=== PATIENT | female | born 1980 | race Caucasian/White ===

== ENCOUNTER 2020-07-25 12:36 | Emergency (ER) | payer OTHER, SELFPAY ==
[2020-07-25 12:44] VITALS: BP 141/101; PULSE 102; RESP 16; TEMP 37; O2SAT 98
--- NOTE | 2020-07-25 12:53 | ED.GENADULT ---
HPI - General Adult General Chief complaint: Eye Problems Stated complaint: rt eye swollen Time Seen by Provider: 07/25/20 12:54 Source: patient, RN notes reviewed and old records reviewed Mode of arrival: ambulatory Limitations: no limitations History of Present Illness HPI narrative: 39 year old female presents to [facility] care with complaints of awakening this morning with right eye swollen. Patient denies any injury to her eye, denies any feeling of foreign body, no itching is not painful and has no photophobia. Patient states no drainage noted from her right eye, swelling noted along right upper eyelid with some redness along upper lid lash line. Patient denies any sinus drainage, sinus congestion or pressure, no fevers,chills or sweats. Patient does wear glasses and sometimes contacts but has not worn them for 3 days. MD complaint: right eye swollen Onset (ago): day(s) (1) Location: eyes (right) Radiation: non-radiation Severity: mild Quality: other ( mild irritating) Relieving factors: none Associated symptoms: denies other symptoms Treatments prior to arrival: other (cold compress) Related Data Home Medications Medication Instructions Recorded Confirmed aripiprazole 15 mg PO DAILY 07/25/20 07/25/20 sertraline 100 mg PO DAILY 07/25/20 07/25/20 Allergies Allergy/AdvReac Type Severity Reaction Status Date / Time No Known Allergies Allergy Verified 07/25/20 12:50 Review of Systems Review of Systems: Narrative: CONSTITUTIONAL: Denies fever, chills, or sweats. EYES: Denies visual changes, redness, or discharge.swelling to right upper eyelid with redness along upper lash line denies any acute pain or itching ENT: Denies rhinorrhea, congestion, sore throat, or otalgia. CARDIOVASCULAR: Denies chest pain, palpitations, or edema. RESPIRATORY: Denies cough or dyspnea. GASTROINTESTINAL: Denies abdominal pain, nausea, vomiting, or diarrhea. GENITOURINARY: Denies dysuria or hematuria. SKIN: Denies rash or itching. MUSCULOSKELETAL: Denies back pain, joint pain, or myalgia. NEUROLOGIC: Denies headache, numbness, or weakness. PSYCHIATRIC: Denies anxiety or depression. All systems reviewed & are unremarkable except as noted in HPI and below PMFSH Past Medical History Medical History (Updated 07/25/20 @ 13:49 by Evon Matias NP) Anxiety and depression Surgical History Surgical History (Updated 07/25/20 @ 13:31 by Evon Matias NP) Previous section Tubal ligation status Family History Family History (Updated 07/25/20 @ 13:29 by Evon Matias NP) Grandparent Heart disease Mother Hypertension Father Cancer of lung Social History Social History (Updated 07/25/20 @ 13:48 by Evon Matias NP) Tobacco type: e-cigarettes/vaping Alcohol intake: former Alcohol use details: social only Substance use: never Living arrangements: with family Gender identity (if verbalized by the patient): Female Comments At time of signature, agree with nursing past medical, surgical, social and family history. There is no relevant family history pertinent to the presenting complaint Exam Narrative: Exam Narrative: GENERAL: Well-appearing, well-nourished, and in no acute distress. HEAD: Normocephalic, atraumatic. EYES: PERRLA and EOMI.sclera clear, conjunctiva pink, no drainage noted from eye. swelling present to right upper eyelid with some redness along upper eye lid lash line, no drainage from eye or any photophobia or changes in vision ENT: Nares clear, no rhinorrhea or epistaxis. Mucous membranes moist. NECK: Supple.no lymphadenopathy CHEST: Clear to auscultation. No respiratory distress.SAO2 98% on room air HEART: Regular rate and rhythm. No murmur heard. Normal peripheral pulses. ABDOMEN: Soft, nontender, nondistended, normal active bowel sounds. EXTREMITIES: Normal range of motion. No edema. SKIN: Warm, dry, no rash. NEURO: No focal deficits. Alert and oriented x3. Course Sia
== END 2020-07-25 13:20 | disposition home or self-care (01) ==
PROVIDERS: Emergency Provider Registered Nurse
DX: H02.841 Edema of right upper eyelid (principal); F17.200 Nicotine dependence, unspecified, uncomplicated; F41.9 Anxiety disorder, unspecified; F32.9 Major depressive disorder, single episode, unspecified
CPT/HCPCS: 99213; G0463

== ENCOUNTER 2024-06-16 00:29 | Emergency (ER) | payer OTHER, SELFPAY ==
[2024-06-16] VITALS (8 sets, daily range): BP systolic 121–140; BP diastolic 79–94; PULSE 72–109; RESP 15–21; TEMP 36.2; O2SAT 96–100
--- NOTE | ~2024-06-16 | XR_ITS ---
XR chest 2V Ordering provider: Brennan Castle MD History: 43 years Female with . chest pain . Comparison: None. FINDINGS: MEDIASTINUM: The cardiac silhouette is not enlarged. LUNGS: No infiltrates, effusions or pneumothorax. OTHER: No free air under the diaphragm. IMPRESSION: No acute cardiopulmonary pathology. Reviewed, dictated and finalized at location A.
--- NOTE | 2024-06-16 00:31 | ECG_ITS ---
Test Date: 2024-06-16 00:53:39 Measurements Intervals [place] Rate: 92 P: 53 MO: 141 QRS: 23 QRSD: 98 T: 54 QT: 367 QTc: 456 Interpretive Statements SINUS RHYTHM NONSPECIFIC T-WAVE ABNORMALITY No previous ECG available for comparison Electronically Signed On 06-16-2024 16:04:32 CDT by Mariana Tyler
--- OUTSIDE RECORDS SUMMARY | 2024-06-16 00:32 | XMS_ITS | Referral Summary ---
Author Organization [facility] Address [address] [place] [address] Care Team Providers Care Slot Operations Director Name Role Phone Kamron Jones MD Primary Care Provider [phone] Kamron Jones MD Unavailable [phone] Encounters Date Type Department Care Team Description 06/05/2024 Telephone [facility] Orthopedics and Sports Medicine [address] [facility] [address] [place] [address] Esa Metzger PA 05/08/2024 Results Follow-Up [facility] [address] [address] Kamron Jones MD 05/07/2024 9:30 AM CDT Lab [facility] [address] [place] [address] Morbid obesity with BMI of 45.0-49.9, adult (HCC); History of sleeve gastrectomy 05/07/2024 9:00 AM CDT Office Visit [facility] [address] [address] Kamron Jones MD History of sleeve gastrectomy (Primary Dx); Need for hepatitis B screening test; Encounter for hepatitis C screening test for low risk patient; Lipid screening; Morbid obesity with BMI of 45.0-49.9, adult (HCC); Class 3 severe obesity due to excess calories without serious comorbidity with body mass index (BMI) of 50.0 to 59.9 in adult (HCC); ANGEL (obstructive sleep apnea) 05/01/2024 8:40 AM CDT Lab [facility] [address] [place] [address] Lipid screening; Encounter for hepatitis C screening test for low risk patient; Need for hepatitis B screening test 04/30/2024 Telephone [facility] [address] [place] [address] Kamron Jones MD Labs Only 03/25/2024 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 Office Visit [facility] Orthopedics and Sports Medicine [address] [facility] [address] [place] [address] Esa Metzger PA Primary osteoarthritis of right knee (Primary Dx); Morbid obesity with BMI of 45.0-49.9, adult (HCC) from Last 3 Months Allergies No known active allergies Medications ARIPiprazole (ABILIFY) 20 mg tabletIndicatio ns:Depression Treatment Adjunct Take 1 tablet (20 mg total) by mouth nightly 90 tablet 1 08/11/2023 5 Active sertraline (ZOLOFT) 100 mg tabletIndicatio ns:Generalized Anxiety Disorder Take 2 tablets (200 mg total) by mouth nightly 180 tablet 1 08/11/2023 5 Active busPIRone (BUSPAR) 15 mg tabletIndicatio ns:Generalized anxiety disorder Take 1 tablet (15 mg total) by mouth 3 (three) times a day 09/20/2023 Active Active Problems Problem Noted Date Diagnosed Date Urinary incontinence 03/10/2023 Assessment & Plan (03/10/2023 9:43 AM DIE MAINTENANCE TECHNICIAN): S/p hysterectomy; occurences of incontinence Referral to PT for pelvic floor therapy Chronic pain of right knee 03/10/2023 Assessment & Plan (03/10/2023 9:45 AM DIE MAINTENANCE TECHNICIAN): Update xray ordered Discussed ortho referral pending results Gastroesophageal reflux disease without esophagi tis 03/10/2023 Assessment & Plan (11/17/2023 9:42 AM CDT): Continue Nexium 20 mg daily History of sleeve gastrectomy 02/01/2022 Assessment & Plan (05/07/2024 3:30 PM CDT): Not well controlled, patient continues to have weight gain; patient on appropriate diet; regular physical activity Patient reports recent imaging demonstrated stomach appeared more rounded in nature then please Will check for possible other causes weight gain, as well as check for availability for patient to start tirzepatide;; if limited options, will refer to [facility] weight loss clinic Assessment & Plan (05/10/2022 8:34 AM CDT): Continue small frequent meals. We will encourage her to continue to attend the monthly support group meetings. Activity unrestricted. Continue calcium, multivitamin and vitamin-D see the patient back in 6 months. If the discomfort with sleeping on her sides persist she will let us know and we will evaluate this further. She will call sooner if anything changes. Assessment & Plan (02/01/2022 1:50 PM DIE MAINTENANCE TECHNICIAN): Stable, improving, pain is down to 3/10 -doing well with diet; on pureed diet at this time -continues to have weight loss Tobacco use disorder, moderate, in sustained rem ission 06/03/2021 Overview (01/14/2022): Quit date 04/2021 Assessment & Plan (02/01/2022 1:52 PM DIE MAINTENANCE TECHNICIAN): Quit smoking, doing well Assessment & Plan (06/03/2021 10:50 AM CDT): Stable, not well controlled; patient reports smoking 10-20 cigarettes daily Patient is unsure about smoking cessation due to stress related to weight loss Discussed with patient importance of smoking cessation in order to improve healing from surgery Most right Nicoderm 14 mg daily for 4 weeks, then taper to 7 mg daily to be followed with neck current gum Will follow-up in 2-3 months response to therapy Generalized anxiety disorder 10/27/2020 Assessment & Plan (11/17/2023 9:45 AM CDT): Chronic, stable Follows with psychiatry Continue Sertraline 200 mg nightly, BuSpar 15 mg TID and Aripiprazole 20 mg nightly Assessment & Plan (08/11/2023 9:37 AM CDT): Chronic, stable Follows with psychiatry Continue Sertraline 200 mg daily, BuSpar 10 mg TID, Aripiprazole 20 mg daily Assessment & Plan (03/10/2023 9:42 AM DIE MAINTENANCE TECHNICIAN): Stable, follows with psychiatry Continue Sertraline 200 mg daily, BuSpar 10 mg TID; Aripiprazole 20 mg daily Assessment & Plan (07/15/2022 12:38 PM CDT): Recently increased due to multiple stressors; follows with Psychiatry, has regular talk therapy Continue Abilify 20 mg daily, BuSpar 5 mg b.i.d., sertraline 200 mg daily Assessment & Plan (02/01/2022 1:52 PM DIE MAINTENANCE TECHNICIAN): Had initially stopped medication due to concerns of constipation; now taking medications to management worsening anxiety -continue abilify 20 mg daily, sertraline 200 mg daily Assessment & Plan (06/03/2021 10:49 AM CDT): Stable, well controlled; patient continues to follow psychiatry for management Continue Abilify 50 mg daily, sertraline 125 mg daily Assessment & Plan (03/31/2021 9:01 AM DIE MAINTENANCE TECHNICIAN): Stable, falls psychiatry; has good relief symptoms Currently on Abilify 50 mg daily, sertraline 100 mg daily Assessment & Plan (10/27/2020 3:46 PM CDT): Follows with psychiatry for management; on Abilify 15 mg and has sertraline 100 mg daily ANGEL (obstructive sleep apnea) 10/27/2020 Assessment & Plan (05/07/2024 3:30 PM CDT): Not well controlled, take CPAP nightly; may benefit from zepbound for treatment Assessment & Plan (07/15/2022 12:38 PM CDT): Stable, generally well controlled with limited daytime sleepiness; has insulin more upright due to postsurgical pain Continue to monitor Assessment & Plan (03/31/2021 9:01 AM DIE MAINTENANCE TECHNICIAN): Stable, well controlled; patient reports significant improvement in symptoms with uses CPAP machine Patient to continue CPAP machine nightly Assessment & Plan (11/17/2020 8:12 AM CDT): Continue current breathing treatments. Class 3 severe obesity due t o excess calories without serious comorbidity with body mass index (BMI) of 50.0 to 59.9 in adult 09/22/2020 Assessment & Plan (05/07/2024 3:29 PM CDT): Not well controlled; patient has history of sleeve gastrectomy; had initial weight loss, which reversed and now weighs heavier than she did prior to surgery Unclear etiology; will check insulin like growth factor, will check C-peptide for possible excess insulin Given ANGEL, patient may benefit from Zepbound Assessment & Plan (11/17/2023 9:48 AM CDT): Weight is steady Unable to lose weight-eating lean healthy protein, whole grains; has cut out pasta Exercising daily-walking on treadmill Needs her BMI to be under 40 for her knee replacement surgery Mounjaro to [facility] She has tried Wellbutrin, Phentermine and Diethylpropion Had weight loss surgery Trial Vyvanse 40 mg daily Follow up 2 months Assessment & Plan (08/11/2023 9:48 AM CDT): Weight is steady Unable to lose weight-eating lean healthy protein, whole grains; has cut out pasta Exercising daily-walking on treadmill Needs her BMI to be under 40 for her knee replacement surgery Mounjaro sent to pharmacy She has tried Wellbutrin and Phentermine Had weight loss surgery Assessment & Plan (03/10/2023 9:44 AM DIE MAINTENANCE TECHNICIAN): 10 pound weight gain since November Discussed importance of healthy diet S/p sleeve gastrectomy Assessment & Plan (07/15/2022 12:39 PM CDT): Stable, improving; weight is stable since last visit Status post sleeve gastrectomy; doing well and tolerating small portions or solid diet No major skin folds or history of skin rashes Continue to monitor Right upper quadrant pain; may be postsurgical pain verses other pain; continue to monitor, if no improvement, would consider abdominal imaging Assessment & Plan (02/08/2022 10:35 AM DIE MAINTENANCE TECHNICIAN): The patient is okay for activities unrestricted. We will encourage her to continue to work with the dietitian as well as a 10 the monthly support group meetings. Small frequent meals and exercise as tolerates. We will encourage protein supplementation. We will see her back at 3 months. Patient will call sooner with any questions or concerns. Assessment & Plan (11/30/2021 8:17 AM CDT): The patient has done quite well having shown consistent weight loss throughout her time. We will encourage her to continue to work with the dietitian and attend the monthly support group sessions. Continue exercise regimen as tolerates. The preoperative liquid handout has been given and instructed on when to start. All questions answered. Assessment & Plan (11/02/2021 8:38 AM CDT): Patient is set to have an EGD today to evaluate for H pylori and hiatal hernia. We will see her back next month to reassess. Continue working on exercise regimen and small frequent meals. Assessment & Plan (10/05/2021 8:21 AM CDT): Continue small frequent meals with goal calorie intake of 1600. Exercise regimen as tolerates. Continue to attend the monthly support groups. We will see her back in 1 month to reassess. Assessment & Plan (09/02/2021 8:38 AM CDT): The patient will continue with her low-carbohydrate diet and watching her sugar intake. Exercise as a to work with the dietitian. We will see her back next month Assessment & Plan (08/05/2021 5:56 PM CDT): Patient is aware of the work that she needs to do to progress. She will continue to work with small frequent meals and exercise regimen as tolerates. Continue follow-up with the dietitian. We will see her back next month to reassess. Assessment & Plan (07/13/2021 8:40 AM CDT): The patient had been seen in the past previously and was being set up for surgery. She However got little bit nervous about this and wanted to wait on the procedure. Her recently went through the program and now she feels significantly more comfortable with things going forward. Referrals will be sent back into the dietitian, psych and physical therapy. She is in understanding of the plan. Assessment & Plan (06/03/2021 10:49 AM CDT): Stable, not well controlled; weight is stable since last visit 2 months ago Patient is interested in referral to bariatric surgery Referral placed today Assessment & Plan (03/31/2021 9:00 AM DIE MAINTENANCE TECHNICIAN): Not well controlled, patient has been working with on weight loss, but has limited success -no interestedin weight loss surgery due to concerns of complications -Will prescribe Liraglutide for weight loss; patient referred in office to manage [facility] chips counseling for weight loss Assessment & Plan (11/17/2020 8:13 AM CDT): Given their past success the patient would be a good candidate for weight loss surgery. We have gone over options such as the bypass and sleeve gastrectomy. We have also discussed risks and benefits such as blood clots, staple line leak as well as new or worsening reflux symptoms. They are in understanding. During this time will have them seen by the dietitian, physical therapy and psych. As we get closer to the time of surgery we will set him up for an EGD to look for hiatal hernia, H pylori or other gastric pathology. We will see them back in 4 weeks. They are in understanding of the plan. We have gone over small frequent meals shooting for a goal calorie intake of around 1600 spread throughout 4-5 meals. We have discussed not eating late at night. We have discussed cardiovascular exercise. Greater than 15 minutes was spent in counseling the patient on diet and exercise with regards to her morbid obesity. Assessment & Plan (10/27/2020 3:46 PM CDT): Not well controlled, patient has tried multiple treatments, patient is also on antipsychotic medication which makes it difficult to lose weight Patient would like referral for bariatric surgery evaluation; referral has been placed Resolved Problems Problem Noted Date Diagnosed Date Resolved Date Abnormal uterine bleeding (AUB) 07/26/2022 11/17/2023 Fibroids 07/26/2022 11/17/2023 Other hemorrhoids 02/01/2022 11/17/2023 Assessment & Plan (02/01/2022 1:51 PM DIE MAINTENANCE TECHNICIAN): Has been having pain, few episodes of constiaption -continue OTC management; treat constipation with milk of magnesia Heartburn 10/29/2021 11/17/2023 Overview (10/29/2021): Added automatically from request for surgery [id number] Immunizations Immunization Administration Dates Next Due Influenza, Quadrivalent, Radha l Culture-based MDCK, Preservative Free, Antibiotic Free, Intramuscular 11/22/2021 Influenza, Unspecified 11/14/2023,2022(Deferred: Patient Refused),11/13/2022(Deferred: Patient Refused),03/30/2021(Deferred: Patient Refused),10/14/2020(Deferred: Patient Refused),09/22/2020(Deferred: Patient Refused),09/14/2019(Deferred: Patient Refused) Tdap 03/10/2023 Social History Tobacco Use Types Packs/Day Years Used Date Smoking Tobacco: Former Cigarettes 1 31.2 1 991 - 04/28/2021 Vaping Smokeless Tobacco: Never Tobacco Cessation:Counseling Given: Not Answered Alcohol Use Standard Drinks/Week Comments Defer 0 (1 standard drink = 0.6 oz pur e alcohol) AUDIT-C Answer Date Recorded Q1: How often do you have a drink containing alc ohol? Monthly or less 10/14/2022 Q2: How many drinks containi ng alcohol do you have on a typical day when you are drinking? 1 or 2 10/14/2022 Q3: How often do you have si x or more drinks on one occasion? Never 10/14/2022 PHQ-2 Answer Date Recorded PHQ-2 Total Score (If total score is 3 or more points, staff should administer the PHQ-9) 0 11/17/2023 Personal Safety Answer Date Recorded Have you ever been in or are you currently in a harmful physical or emotional relationship or is someone making you feel afraid or unsafe? 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[employer] [employer] Not on file Not on file Not on file Last Filed Vital Signs Vital Sign Reading Time Taken Comments Blood Pressure 124/80 05/07/2024 8:56 AM CDT Pulse 80 05/07/2024 8:56 AM CDT Temperature 36.5 C (97.7 F) 05/07/2024 8:56 AM CDT Respiratory Rate 18 05/07/2024 8:56 AM CDT Oxygen Saturation 98% 05/07/2024 8:56 AM CDT Inhaled Oxygen Concentration - - Weight 146.1 kg (322 lb) 05/07/2024 8:56 AM CDT Height 162.6 cm (5' 4 ) 05/07/2024 8:56 AM CDT Body Mass Index 55.27 05/07/2024 8:56 AM CDT Plan of Treatment Not on file Medical Devices Implanted Type Area Switch Tender Device Identifier Shelf Expiration Date Model / Serial / Lot Signal360 (formerly Sonic Notify) Mammostar Tissue Barbell Marker Breast Biopsy Beta Glucan Ceramic [id number] - [id number] Implanted:Qty: 1 on 07/27/2022 at [facility] [employer] [id number] 01/10/2027 [id number] / / [id number] Procedures Procedure Name Priority Date/Time Associated Diagnosis Comments INSULIN-LIKE GROWTH FACTOR Routine 05/07/2024 9:36 AM CDT Morbid obesity with BMI of 45.0-49.9, adult (HCC) History of sleeve gastrectomy C-PEPTIDE Routine 05/07/2024 9:36 AM CDT Morbid obesity with BMI of 45.0-49.9, adult (HCC) History of sleeve gastrectomy EGFR Routine 05/01/2024 8:51 AM CDT Lipid screening DIFFERENTIAL AUTO Routine 05/01/2024 8:5 1 AM CDT Lipid screening LIPID PANEL Routine 05/01/2024 8:51 AM CDT Lipid screening CBC WITH AUTO DIFFERENTIAL Routine 05/01/2024 8:51 AM CDT Lipid screening COMPREHENSIVE METABOLIC PANEL Routine 05/01/2024 8:51 AM CDT Lipid screening HEPATITIS B SURFACE ANTIGEN Routine 05/01/2024 8:51 AM CDT Need for hepatitis B screening test HEPATITIS B CORE ANTIBODY, TOTAL Routine 05/01/2024 8:51 AM CDT Need for hepatitis B screening test HEPATITIS B SURFACE ANTIBODY (IMMUNE STATUS) Routine 05/01/2024 8:51 AM CDT Need for hepatitis B screening test HEPATITIS C ANTIBODY Routine 05/01/2024 8:51 AM CDT Encounter for hepatitis C screening test for low risk patient [place] ARTHROCENTESIS ASPIR&/INJ MAJOR JT/BURSA W/O US Routine 03/25/2024 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 Primary osteoarthritis of right knee SCREENING MAMMOGRAM BILATERAL W JASSON Schedule Routine, Read Routine (OP Routine) 07/31/2023 9:06 AM CDT Screening mammogram, encounter for from Last 3 Months or Most Recently Relevant to Health Maintenance Results * Insulin-like growth factor (IGF-1) (05/07/2024 9:36 AM CDT) Insulin-like growth factor 1 (IGF-1) 127 50 - 250 ng/mL Comment: Interpretive Data Alvaro Stage Male Female I 80-250 80-320 II 100-450 120-450 III 250-500 250-550 IV 225-600 225-600 V 225-500 180-500 Assay calibrated to WHO and instituted at [facility] 06/2017. References: 1. [employer] IGF-1 Package Insert 2016-11, V 1.0. 2. [facility] IGFMS entry ([email or web address].[email or web address]-[email or web address]/43781) accessed 06-21-2017. 3. Kendal M, Osman N, Nick RT et al. J Clin Endocrinol Metab 2014;99:4633-2218. Current interpretive data was last revised on 2017. Testing performed by: [facility], [place]., [address] Blood 05/07/2024 9:36 AM CDT 05/07/2024 2:05 PM CDT Kamron Jones MD LAB BLOOD ORDERABLES Anahi l Result [facility] ([place]) 1 [facility] Department of Laboratories [place] [id number] * C-peptide (05/07/2024 9:36 AM CDT) C-peptide 4.06 1.10 - 4.40 ng/mL Comment:Testing performed by : [facility], [address] [place] [address]., [id number] Blood 05/07/2024 9:36 AM CDT 05/07/2024 1:57 PM CDT Kamron Jones MD LAB BLOOD ORDERABLES Anahi l Result [facility] ([place]) 1 [facility] [place] [address] * eGFR (05/01/2024 8:51 AM CDT) eGFR >90 >=60 mL/min/1. 73 m2 Comment: Interpretive Data Reference Interval Normal >/= 90 mL/min/1.73m2 Mildly decreased* 60 - 89 mL/min/1.73m2 Mildly to moderately decreased 45 - 59 mL/min/1.73m2 Moderately to severely decreased 30 - 44 mL/min/1.73m2 Severely decreased 15 - 29 mL/min/1.73m2 Kidney Failure < 15 mL/min/1.73m2 *Relative to young adult level Estimated glomerular filtration rate is determined by the 2020 CKD-EPI equation recommended by the National Kidney Foundation (A Unifying Approach to GFR Estimation: Recommendations of the NKF-ASK Task Force on Reassessing the Inclusion of Race in Diagnosing Kidney Disease, JASN 2020). The CKD-EPI equation should not be used for patients with unstable renal function and has not been validated in children and those over 70. Current interpretive data was last reviewed 2020. Testing performed by: [address] [address] Blood 05/01/2024 8:51 AM CDT 05/01/2024 12:43 PM CDT us Kamron Jones MD LAB BLOOD ORDERABLES Anahi campa Result [facility] ([place]) [address] [facility] [place] [address] * Differential, auto (05/01/2024 8:51 AM CDT) Pathologist [facility] Neutrophil abs 5.6 1.5 - 6.5 K/cumm Comment:Testing performed by : [address] [address] Imm gran abs 0.0 0.0 - 0.1 K/cumm [facility] ([place]) Comment:Testing performed by : [address] [address] Lymphocyte abs 2.9 0.8 - 3.3 K/cumm [facility] ([place]) Comment:Testing performed by : [facility], [address] [place] [address]., [address] Monocyte abs 0.5 0.2 - 0.8 K/cumm [facility] ([place]) Comment:Testing performed by : [facility], [address] [place] [address]., [address] Eosinophil abs 0.3 0.0 - 0.5 K/cumm [facility] ([place]) Comment:Testing performed by : [facility], [address] [place] [address]., [address] Basophil abs 0.1 0.0 - 0.1 K/cumm [facility] ([place]) Comment:Testing performed by : [address] [address] Neutrophil pct 59.6 % [facility] ([place]) Comment: Interpretive Data Percent cell count reference ranges are not reported, since discordance with absolute values may lead to misinterpretation of CBC data. Current Interpretive Data was last revised on 2017. Testing performed by: [facility], [address] [place] [address]., [address] Imm gran pct 0.3 % [facility] ([place]) Comment: Interpretive Data Percent cell count reference ranges are not reported, since discordance with absolute values may lead to misinterpretation of CBC data. Current Interpretive Data was last revised on 2017. Testing performed by: [address] [address] Lymphocyte pct 30.8 % [facility] ([place]) Comment: Interpretive Data Percent cell count reference ranges are not reported, since discordance with absolute values may lead to misinterpretation of CBC data. Current Interpretive Data was last revised on 2017. Testing performed by: [address] [address] Monocyte pct 5.6 % [facility] ([place]) Comment: Interpretive Data Percent cell count reference ranges are not reported, since discordance with absolute values may lead to misinterpretation of CBC data. Current Interpretive Data was last revised on 2017. Testing performed by: [address] [place]., [address] Eosinophil pct 3.1 % [facility] ([place]) Comment: Interpretive Data Percent cell count reference ranges are not reported, since discordance with absolute values may lead to misinterpretation of CBC data. Current Interpretive Data was last revised on 2017. Testing performed by: [facility], [address] [place] [address]., [address] Basophil pct 0.6 % [facility] ([place]) Comment: Interpretive Data Percent cell count reference ranges are not reported, since discordance with absolute values may lead to misinterpretation of CBC data. Current Interpretive Data was last revised on 2017. Testing performed by: [facility], [address] [place] [address]., [address] Blood 05/01/2024 8:51 AM CDT 05/01/2024 12:27 PM CDT us Kamron Jones MD LAB BLOOD ORDERABLES Anahi capma Result [facility] ([place]) 1 [facility] [place] [address] * CBC with auto differential (05/01/2024 8:51 AM CDT) WBC 9.3 3.8 - 9.9 K/cumm Comment:Testing performed by : [facility], [address] [place] [address], [id number] Hgb 13.5 11.9 - 15.5 g/dL [facility] ([place]) Comment:Testing performed by : [facility], [address] [place] [address], [id number] Hct 40.0 35.6 - 45.5 % [facility] ([place]) Comment:Testing performed by : [facility], [address] [place] [address], [id number] Plt 348 150 - 400 K/cumm [facility] ([place]) Comment:Testing performed by : [address], [address] MPV 9.8 9.1 - 12.3 fL [facility] ([place]) Comment:Testing performed by : [address] [place]., [address] RBC 4.46 3.90 - 5.20 M/cumm [facility] ([place]) Comment:Testing performed by : [facility], [address] [place] [address], [address] MCV 89.7 81.3 - 96.4 fL [facility] ([place]) Comment:Testing performed by : [facility], [address] [place] [address], [address] MCH 30.3 27.1 - 33.3 pg [facility] ([place]) Comment:Testing performed by : [address], [address] MCHC 33.8 32.3 - 35.7 g/dL [facility] ([place]) Comment:Testing performed by : [address], [address] RDW CV 13.0 11.1 - 14.9 % [facility] ([place]) Comment:Testing performed by : [address], [address] RDW SD 43.0 35.7 - 48.1 fL [facility] ([place]) Comment:Testing performed by : [address], [address] NRBC abs 0.00 0.00 - 0.01 K/cumm [facility] ([place]) Comment:Testing performed by : [address], [address] Blood 05/01/2024 8:51 AM CDT 05/01/2024 12:27 PM CDT us Kamron Jones MD LAB BLOOD ORDERABLES Anahi campa Result [facility] ([place]) 1 [facility] Department of Laboratories [place], [place] [id number] * Hepatitis C antibody Blood (05/01/2024 8:51 AM CDT) Hep C Ab Nonreactive Nonreactive Comment: Interpretive Data Nonreactive: Antibodies to HCV not detected. Does NOT exclude the possibility of recent exposure to HCV. Equivocal: Equivocal for HCV antibodies. Supplemental molecular testing will be automatically performed to determine infection status in accordance with current CDC screening recommendations. Reactive: Positive for HCV antibodies. This may represent current or past HCV infection. Supplemental molecular testing will be automatically performed to determine current infection status in accordance with current CDC screening recommendations. Interpretive data was last revised on 2019. Testing performed by: [facility], [address] [place] [address]., [address] Blood 05/01/2024 8:51 AM CDT 05/01/2024 12:27 PM CDT Kamron Jones MD LAB MICROBIOLOGY - GENERA L ORDERABLES Final Result [facility] ([place]) 1 [facility] [place] [place] [address] * Hepatitis B core antibody, total Blood (05/01/2024 8:51 AM CDT) Hep B core IgG/IgM Nonreactive Nonreactive Comment:Testing performed by : [facility], [address] [place] [address]., [id number] Blood 05/01/2024 8:51 AM CDT 05/01/2024 1:58 PM CDT Kamron Jones MD LAB MICROBIOLOGY - GENERA L ORDERABLES Final Result [facility] ([place]) [address] [place] [address] [place] [address] * Hepatitis B surface antibody (immune status) Blood (05/01/2024 8:51 AM CDT) HBsAb (immune status) Reactive Comment: Interpretive Data Nonreactive: This result is consistent with a lack of immunity to Hepatitis B Virus when used in the setting of routine screening. Equivocal: The immune status of the individual should be further assessed, if appropriate, after consideration of clinical status, risk factors, and additional diagnostic information. Reactive: This result is consistent with immunity to Hepatitis B Virus when used in the setting of routine screening. Current interpretive data was last revised on 19. Testing performed by: [facility], [address] [place] [address]., [id number] HBsAb (immune status) index 109.0 mIUnits/m L [facility] ([place]) Comment:Testing performed by : [facility], [address] [place] [address]., [id number] Blood 05/01/2024 8:51 AM CDT 05/01/2024 12:27 PM CDT Kamron Jones MD LAB MICROBIOLOGY - GENERA L ORDERABLES Final Result Performing Organization Address City/[facility]/ZIP Co de Phone Number [facility] ([place]) 1 [facility] [place] [place] [address] * Hepatitis B Surface Antigen Blood (05/01/2024 8:51 AM CDT) HepBsAg Nonreactive Nonreactive Comment:Testing performed by : [facility], [address] [place] [address]., [id number] Blood 05/01/2024 8:51 AM CDT 05/01/2024 12:27 PM CDT Kamron Jones MD LAB MICROBIOLOGY - GENERA L ORDERABLES Final Result Performing Organization Address City/[facility]/ZIP Co de Phone Number [facility] ([place]) 1 [facility] [place] [place] [address] * Lipid panel (05/01/2024 8:51 AM CDT) Cholesterol 180 30 - 199 mg/dL Comment: Interpretive Data Ages < or = 19 years Acceptable: <170 mg/dL Borderline high: 170-199 mg/dL High: >or= 200 mg/dL Ages > or = 20 years Desirable: <200 mg/dL Borderline high: 200-239 mg/dL High: >or= 240 mg/dL Literature References: 1. Expert Panel on Integrated Guidelines for Cardiovascular Health and Risk Reduction in Children and Adolescents. Pediatrics 2011;128:S213 2. NCEP Expert Panel. Circulation 2004;110:227 Current Interpretive Data was last revised on 2017. Testing performed by: [facility], [address] [place] [address]., [id number] Triglycerides 77 <=149 mg/dL [facility] ([place]) Comment: Interpretive Data Ages < or = 9 years Acceptable: <75 mg/dL Borderline high: 75-99 mg/dL High: >or= 100 mg/dL Ages 10 to 20 years Acceptable: <90 mg/dL Borderline high: 90-129 mg/dL High: >or= 130 mg/dL Ages > or = 20 years Desirable: <150 mg/dL Borderline high: 150-199 mg/dL High: 200-499 mg/dL Very high: >or= 499 mg/dL Literature References: 1. Expert Panel on Integrated Guidelines for Cardiovascular Health and Risk Reduction in Children and Adolescents. Pediatrics 2011;128:S213 2. NCEP Expert Panel. Circulation 2004;110:227 Current Interpretive Data was last revised on 2017. Testing performed by: [facility], [address] [place] [address]., [address] HDL 53 >=40 mg/dL [facility] ([place]) Comment: Interpretive Data Ages < or = 19 years Acceptable: >45 mg/dL Borderline low: 40-45 mg/dL Low: <40 mg/dL Ages > or = 20 years Desirable: >or= 60 mg/dL Low: <40 mg/dL Literature References: 1. Expert Panel on Integrated Guidelines for Cardiovascular Health and Risk Reduction in Children and Adolescents. Pediatrics 2011;128:S213 2. NCEP Expert Panel. Circulation 2003;110:227 Current Interpretive Data was last revised on 2017. Testing performed by: [facility], [address] [place] [address]., [id number] LDL, calculated 113 <=129 mg/dL [facility] ([place]) Comment: Interpretive Data Ages < or = 19 years Acceptable: <110 mg/dL Borderline high: 110-129 mg/dL High: >or= 130 mg/dL Ages > or = 20 years Optimal: <100 mg/dL Near optimal: 100-129 mg/dL Borderline high: 130-159 mg/dL High: >160 mg/dL Calculated using the Quintanilla LDL-C estimating equation. This equation was implemented on 2023. Prior to this date LDL-C was estimated using the Friedewald equation. Literature References: 1. Expert Panel on Integrated Guidelines for Cardiovascular Health and Risk Reduction in Children and Adolescents. Pediatrics 2011;128:S213 2. NCEP Expert Panel. Circulation 2004;110:227 3. Dwight Rodney et al. ESTHER Cardiol. 2020 June 13;5(5):540-548. doi: [email or web address] Current Interpretive Data was last revised on 2023. Testing performed by: [address] [address] Non-HDL Cholesterol 127 mg/dL [facility] ([place]) Comment: Interpretive Data Ages < or = 19 years Acceptable: <120 mg/dL Borderline high: 120-144 mg/dL High: >145 mg/dL Ages > or = 20 years When triglycerides are >200 mg/dL, Non-HDL cholesterol is a secondary target of therapy with treatment goals that are 30 mg/dL greater than the LDL cholesterol target. Literature References: 1. Expert Panel on Integrated Guidelines for Cardiovascular Health and Risk Reduction in Children and Adolescents. Pediatrics 2011;128:S213 2. NCEP Expert Panel. Circulation 2004;110:227 Current Interpretive Data was last revised on 2017. Testing performed by: [address] [address] Chol/HDL ratio 3 GERRYNE Sherrill [facility] ([place]) Comment:Testing performed by : [address] [address] Blood 05/01/2024 8:51 AM CDT 05/01/2024 12:27 PM CDT us Kamron Jones MD LAB BLOOD ORDERABLES Anahi campa Result [facility] ([place]) 1 [facility] [place] [address] * Comprehensive metabolic panel (05/01/2024 8:51 AM CDT) [facility] Sodium 138 135 - 145 mmol/L Comment:Testing performed by : [address] [address] Potassium, pl 3.7 3.3 - 4.9 mmol/L [facility] ([facility]) Comment:Testing performed by : [facility], [address] [place] [address]., [address] Chloride 101 97 - 110 mmol/L [facility] ([facility]) Comment:Testing performed by : [address] [address] CO2 24 22 - 32 mmol/L [facility] ([place]) Comment:Testing performed by : [address] [address] Anion gap 13 2 - 15 mmol/L [facility] ([place]) Comment:Testing performed by : [address], [address] BUN 9 6 - 25 mg/dL [facility] ([place]) Comment:Testing performed by : [address], [address] Creatinine 0.62 0.60 - 1.10 mg/dL [facility] ([place]) Comment:Testing performed by : [address], [address] Glucose 84 70 - 199 mg/dL [facility] ([place]) Comment: Interpretive Data Fasting glucose >/= 126 mg/dl is diagnostic for diabetes. Fasting is defined as no caloric intake for at least 8 hours. Fasting glucose between 100 mg/dl to 125 mg/dl is diagnostic of prediabetes. In a patient with classic symptoms of hyperglycemia or hyperglycemic crisis, a random glucose >/= 200 mg/dl is diagnostic for diabetes. In the absence of unequivocal hyperglycemia, results should be confirmed by repeat testing. The classification and Diagnosis of Diabetes Diabetes Care 202; 46: S19-S40. Current interpretive data was last revised 2022. Testing performed by: [facility], [address] [place] [address]., [address] Calcium 9.4 8.5 - 10.3 mg/dL [facility] ([place]) Comment:Testing performed by : [address], [address] Bilirubin, total 0.3 0.1 - 1.2 mg/dL [facility] ([place]) Comment:Testing performed by : [address] [address] Protein, pl 7.6 6.5 - 8.5 g/dL [facility] ([place]) Comment:Testing performed by : [facility], [address] [place] [address]., [address] Albumin 4.3 3.5 - 5.0 g/dL [facility] ([place]) Comment:Testing performed by : [facility], [address] [place] [address], [address] Alk phos 85 40 - 130 Units/L [facility] ([facility]) Comment:Testing performed by : [facility], [address] [place] [address], [id number] ALT 38 7 - 45 Units/L [facility] ([facility]) Comment:Testing performed by : [facility], [address] [place] [address], [id number] AST 29 10 - 45 Units/L [facility] ([place]) Comment:Testing performed by : [facility], [address] [place] [address], [id number] Blood 05/01/2024 8:51 AM CDT 05/01/2024 12:27 PM CDT us Kamron Jones MD LAB BLOOD ORDERABLES Anahi l Result [facility] ([place]) 1 [facility] [place] [address] * [place] ARTHROCENTESIS ASPIR&/INJ MAJOR JT/BURSA W/O US (03/25/2024 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) Narrative Esa Metzger PA - 03/25/2024 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 Esa Metzger PA 03/25/2024 2:28 PM Large Joint (Hip, Knee, Shoulder) Injection: R knee Performed by: Esa Metzger PA Authorized by: Esa Metzger PA Large Joint Injection/Aspiration: Consent Given by: Patient Timeout: prior to procedure the correct patient, procedure, and site was verified Verbal consent obtained: Yes Supporting Documentation: Indications: Pain Procedure Details: Location: Knee Site: R knee Prep: patient was prepped using a clean technique Needle Size: 22 G Approach: Anterolateral Ultrasound guided: No Fluroscopic guidance: No Medications: 32 mg triamcinolone acetonide extended release 32 mg; 2 mL lidocaine 20 mg/mL (2 %) Patient tolerance: Patient tolerated the procedure well with no immediate complications Esa CALLEJAS IN CLINIC/BEDSIDE DENZEL DIAS Final Result * Screening Mammogram Bilateral W Jasson (07/31/2023 9:06 AM CDT) Anatomical Region Laterality Modality Breast Bilateral Mammography 07/31/2023 9:16 AM CDT Impressions 07/31/2023 9:16 AM CDT No evidence of malignancy in either breast. FINAL ASSESSMENT: BI-RADS Category 2: Benign. RECOMMENDATION: Recommend return for annual screening mammogram in 12 months. Electronically signed by: Sung Thomas II, D.O. Narrative 07/31/2023 9:16 AM CDT EXAMINATION: BILATERAL SCREENING MAMMOGRAM COMPARISON: Multiple priors most recent dated 07/27/2022 and most recent dated 04/28/2021. TECHNIQUE: Full-field 2D and digital breast tomosynthesis (DBT) images were obtained. CAD was utilized. BREAST PARENCHYMAL COMPOSITION: There are scattered areas of fibroglandular density. FINDINGS: There is no suspicious mass, calcification, or distortion in either breast. Stable asymmetry in the outer quadrant of the right breast. Prior biopsy in the right breast. Self Screening Mammogram IMG MAMMO PROCEDURES Fi nal Result from Last 3 Months or Most Recently Relevant to Health Maintenance Insurance [facility] CHOICE PLUS R [facility] Advance Directives For more information, please contact: [phone] Documents on File Type Date Recorded Patient [place] Expl anation ADVANCE DIRECTIVE 10/28/2022 8:02 AM Power of Religious Healer-Medical * Full Code (Latest Code Status on File) Date Activated Date Inactivated Comments 12/29/2021 10:51 AM 01/04/2022 1:53 PM * Full Code Date Activated Date Inactivated Comments 11/02/2021 12:32 PM 11/02/2021 7:38 PM * Full Code Date Activated Date Inactivated Comments 11/02/2021 12:31 PM 11/02/2021 12:32 PM Care Teams Slot Operations Director Relationship Specialty Start Date End Date Kamron Jones MD [address] [place] [address] PCP - General 10/31/21 Kamron Jones MD [address] [place] [address] Family Medicine 10/31/21
--- OUTSIDE RECORDS SUMMARY | 2024-06-16 00:32 | XMS_ITS | Clinical Summary ---
Author Organization [facility] Address [address] [place] [address] Care Team Providers Care Electric Solderer Name Role Phone Kamron Jones MD Primary Care Provider [phone] Kamron Jones MD Unavailable [phone] Allergies No known active allergies Medications ARIPiprazole [...] 03/10/2023 Assessment & Plan (03/10/2023 9:43 AM ENGINE MAINTENANCE MECHANIC): S/p hysterectomy; occurences of incontinence Referral to PT for pelvic floor therapy Chronic pain of right knee 03/10/2023 Assessment & Plan (03/10/2023 9:45 AM ENGINE MAINTENANCE MECHANIC): Update xray ordered Discussed ortho referral pending [...] tirzepatide;; if limited options, will refer to [facility] weight loss clinic Assessment & Plan (05/10/2022 [...] changes. Assessment & Plan (02/01/2022 1:50 PM ENGINE MAINTENANCE MECHANIC): Stable, improving, pain is down to 3/10 -doing well with diet; on pureed diet at this time -continues to have weight loss Tobacco use disorder, moderate, in sustained rem ission 06/03/2021 Overview (01/14/2022): Quit date 04/2021 Assessment & Plan (02/01/2022 1:52 PM ENGINE MAINTENANCE MECHANIC): Quit smoking, doing well Assessment & Plan [...] daily Assessment & Plan (03/10/2023 9:42 AM ENGINE MAINTENANCE MECHANIC): Stable, follows with psychiatry Continue Sertraline 200 mg daily, BuSpar 10 mg TID; Aripiprazole 20 mg daily Assessment & Plan (07/15/2022 12:38 PM CDT): Recently increased due to multiple stressors; follows with Psychiatry, has regular talk therapy Continue Abilify 20 mg daily, BuSpar 5 mg b.i.d., sertraline 200 mg daily Assessment & Plan (02/01/2022 1:52 PM ENGINE MAINTENANCE MECHANIC): Had initially stopped medication due to concerns of constipation; now taking medications to management worsening anxiety -continue abilify 20 mg daily, sertraline 200 mg daily Assessment & Plan (06/03/2021 10:49 AM CDT): Stable, well controlled; patient continues to follow psychiatry for management Continue Abilify 50 mg daily, sertraline 125 mg daily Assessment & Plan (03/31/2021 9:01 AM ENGINE MAINTENANCE MECHANIC): Stable, falls psychiatry; has good relief symptoms [...] monitor Assessment & Plan (03/31/2021 9:01 AM ENGINE MAINTENANCE MECHANIC): Stable, well controlled; patient reports significant improvement [...] for her knee replacement surgery [facility] She has tried Wellbutrin, Phentermine and Diethylpropion [...] surgery Assessment & Plan (03/10/2023 9:44 AM ENGINE MAINTENANCE MECHANIC): 10 pound weight gain since November Discussed [...] imaging Assessment & Plan (02/08/2022 10:35 AM ENGINE MAINTENANCE MECHANIC): The patient is okay for activities unrestricted. [...] today Assessment & Plan (03/31/2021 9:00 AM ENGINE MAINTENANCE MECHANIC): Not well controlled, patient has been working [...] 11/17/2023 Assessment & Plan (02/01/2022 1:51 PM ENGINE MAINTENANCE MECHANIC): Has been having pain, few episodes of constiaption -continue OTC management; treat constipation with milk of magnesia Heartburn 10/29/2021 11/17/2023 Overview (10/29/2021): Added automatically from request for surgery [id number] Encounters Date Type Department Care Team Description 06/05/2024 Telephone [facility] Orthopedics and Sports Medicine [address] [facility] [address] [place] [address] Esa Metzger PA 05/08/2024 Results Follow-Up [facility] [address] [place] [phone] Kamron Jones MD 05/07/2024 9:30 AM CDT Lab [facility] [address] [place] [phone] Morbid obesity with BMI of 45.0-49.9, adult (HCC); History of sleeve gastrectomy 05/07/2024 9:00 AM CDT Office Visit [facility] [address] [place] [phone] Kamron Jones MD History of sleeve gastrectomy [...] sleep apnea) 05/01/2024 8:40 AM CDT Lab [facility] [address] [place] [address] Lipid screening; Encounter for hepatitis C screening test for low risk patient; Need for hepatitis B screening test 04/30/2024 Telephone [facility] [address] [place] [address] Kamron Jones MD Labs Only 03/25/2024 2:15 PM ENGINE MAINTENANCE MECHANIC Office Visit [facility] Orthopedics and Sports Medicine [address] [facility] [address] [place] [address] Esa Metzger PA Primary osteoarthritis of right knee (Primary Dx); Morbid obesity with BMI of 45.0-49.9, adult (HCC) from Last 3 Months Immunizations Immunization Administration Dates Next Due Influenza, Quadrivalent, Radha l Culture-based MDCK, Preservative Free, Antibiotic Free, Intramuscular 11/22/2021 Influenza, Unspecified 11/14/2023,2022(Deferred: Patient Refused),11/13/2022(Deferred: Patient Refused),03/30/2021(Deferred: Patient Refused),10/14/2020(Deferred: Patient Refused),09/22/2020(Deferred: Patient Refused),09/14/2019(Deferred: Patient Refused) Tdap 03/10/2023 Surgical History Surgery Date Site/Laterality Comments TUBAL LIGATION 02/13/2001 - 02/12/2002 SECTION 02/13/2001 - 02/12/2002 x1 MOUTH SURGERY upper palet SLEEVE GASTROPLASTY 12/29/2021 ABDOMINAL SURGERY 02/13/2021 - 02/12/2022 to stop internal bleeding BREAST BIOPSY 07/27/2022 Right HYSTERECTOMY 02/13/2022 - 02/12/2023 Medical History Medical History Date Comments Depression Anxiety Sleep difficulties apena PONV (postoperative nausea and vomiting) Sleep apnea Hip dysplasia, congenital Pneumonia Headache Varicella chicken pox, allegra ngles Peptic ulceration Fibroids 07/26/2022 Abnormal uterine bleeding (AUB) 07/26/2022 Family History Medical History Relation Name Comments Lung cancer Father Heart failure Maternal Grandmother Depression Mother Hypertension Mother Cancer Mother's Sister Anesthesia problems Neg Hx Relation Name Status Comments Brother 1 Alive Brother 2 Alive Father Maternal Grandmother Mother Alive Mother's Sister Alive Social History Tobacco Use Types Packs/Day Years [...] on file Legal Sex Female 11:44 AM ENGINE MAINTENANCE MECHANIC Gender Identity Female 02/16/2022 6:33 PM ENGINE MAINTENANCE MECHANIC Sexual Orientation Straight 02/02/2023 7: 45 AM ENGINE MAINTENANCE MECHANIC 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 Not on file Not on file Obstetrics History Para Term AB IAB SAB Ectopic Multiple Livin g Live Births 2 2 2 2 2 Date Outcome GA Total Labor Labor/2nd/3rd Weight Sex Type Anes PTL Alana A1 A5 Name Clin Term C-Secti on Living Term Vaginal Living Last Filed Vital Signs Vital Sign Reading [...] 05/07/2024 8:56 AM CDT Plan of Treatment Health Maintenance Due Date Last Done Comments Regular Well Visit/Exam 18-64 1998 Breast Cancer Screening-Mammogram 07/30/2024 07/31/2023, 06/04/2022, 06/04/2022, Additional history exists Depression Screening 11/16/2024 11/17/2023, 08/11/2023, 06/13/2023, Additional history exists DTaP/Tdap/Td Vaccine (2 - Td or Tdap) 03/10/2033 03/10/2023 Covid-19 Vaccine Discontinued 11/22/2021, 10/21/2021 Influenza Vaccine Completed 11/14/2023, 11/22/2021 Hepatitis B Screening Completed 05/01/2024 Hepatitis C Screening Completed 05/01/2024 HPV Vaccines Aged Out No longer eligi ble based on patient's age to complete this topic Pneumococcal vaccine <65 Aged Out No longer eligible based on patient's age to complete this topic Medical Devices Implanted Type Area Extrusion Process Operator Device Identifier Shelf Expiration Date Model / Serial / Lot Vidatronic Mammostar Tissue Barbell Marker Breast Biopsy Beta Glucan Ceramic [id number] - [id number] Implanted:Qty: 1 on 07/27/2022 at [facility] V[employer] [id number] 01/10/2027 [id number] / / [id number] Procedures Procedure Name Priority Date/Time Associated Diagnosis [...] C screening test for low risk patient PA ARTHROCENTESIS ASPIR&/INJ MAJOR JT/BURSA W/O US Routine 03/25/2024 2:15 PM ENGINE MAINTENANCE MECHANIC Primary osteoarthritis of right knee SCREENING MAMMOGRAM [...] Assay calibrated to WHO and instituted at [facility] 06/2017. References: 1. Elecsys IGF-1 Package Insert 2016-11, V 1.0. 2. Ramos Nanochip IGFMS entry (https://Viigo/test-catalog/Overview/26799) accessed 06-21-2017. 3. Kendal M, Osman N, Nick RT et al. J Clin Endocrinol Metab 2014;99:2416-6839. Current interpretive data was last revised on 2017. Testing performed by: [facility], [place]., [address] Blood 05/07/2024 9:36 AM CDT 05/07/2024 2:05 PM CDT Kamron Jones MD LAB BLOOD ORDERABLES Anahi l Result [facility] ([place]ERS) [address] [place] [address] Fuel ([email or web address]) [place] [address] * C-peptide (05/07/2024 9:36 AM CDT) [facility] C-peptide 4.06 1.10 - 4.40 ng/mL Comment:Testing performed by : [facility], [address] [place] [address]., [address] Blood 05/07/2024 9:36 AM CDT 05/07/2024 1:57 PM CDT Kamron Jones MD LAB BLOOD ORDERABLES Anahi l Result [facility] (PETR) [address] [facility] [place] [address] * eGFR (05/01/2024 8:51 AM CDT) eGFR [...] was last reviewed 2020. Testing performed by: [facility], [address] [place] [address], [address] Blood 05/01/2024 8:51 AM CDT 05/01/2024 12:43 PM CDT us Kamron Jones MD LAB BLOOD ORDERABLES Anahi campa Result [facility] ([place]) [address] [facility] Department [place] [address] * Differential, auto (05/01/2024 8:51 AM CDT) Pathologist [facility] Neutrophil abs 5.6 1.5 - 6.5 K/cumm Comment:Testing performed by : [facility], [address] [place] [address]., [address] Imm gran abs 0.0 0.0 - 0.1 K/cumm [facility] IG[facility] (PETR) Comment:Testing performed by : [facility], [address] [place] [address], [address] Lymphocyte abs 2.9 0.8 - 3.3 K/cumm [facility] IG[facility] (PETR) Comment:Testing performed by : [facility], [address] [place] [address]., [address] Monocyte abs 0.5 0.2 - 0.8 K/cumm [facility] (PETR) Comment:Testing performed by : [facility], [address] [place] [address]., [address] Eosinophil abs 0.3 0.0 - 0.5 K/cumm [facility] (PETR) Comment:Testing performed by : [facility], [address] [place] [address]., [address] Basophil abs 0.1 0.0 - 0.1 K/cumm [facility] (PETR) Comment:Testing performed by : [facility], [address] [place] [address]., [address] Neutrophil pct 59.6 % [facility] (PETR) Comment: Interpretive Data Percent cell count reference ranges are not reported, since discordance with absolute values may lead to misinterpretation of CBC data. Current Interpretive Data was last revised on 2017. Testing performed by: [facility], [address] [place] [address]., [address] Imm gran pct 0.3 % [facility] (PETR) Comment: Interpretive Data Percent cell count reference ranges are not reported, since discordance with absolute values may lead to misinterpretation of CBC data. Current Interpretive Data was last revised on 2017. Testing performed by: [facility], [address] [place] [address]., [address] Lymphocyte pct 30.8 % [facility] (PETR) Comment: Interpretive Data Percent cell count reference ranges are not reported, since discordance with absolute values may lead to misinterpretation of CBC data. Current Interpretive Data was last revised on 2017. Testing performed by: [address] [address] Monocyte pct 5.6 % [facility] (PETR) Comment: Interpretive Data Percent cell count reference ranges are not reported, since discordance with absolute values may lead to misinterpretation of CBC data. Current Interpretive Data was last revised on 2017. Testing performed by: [address] [address] Eosinophil pct 3.1 % [facility] (PETR) Comment: Interpretive Data Percent cell count reference ranges are not reported, since discordance with absolute values may lead to misinterpretation of CBC data. Current Interpretive Data was last revised on 2017. Testing performed by: [address] [address] Basophil pct 0.6 % [facility] (PETR) Comment: Interpretive Data Percent cell count reference ranges are not reported, since discordance with absolute values may lead to misinterpretation of CBC data. Current Interpretive Data was last revised on 2017. Testing performed by: [address], [address] Blood 05/01/2024 8:51 AM CDT 05/01/2024 12:27 PM CDT Kamron Jones MD LAB BLOOD ORDERABLES Anahi campa Result [facility] (PETR) [address] [facility] Department [place] [address] * CBC with auto differential (05/01/2024 8:51 AM CDT) WBC 9.3 3.8 - 9.9 K/cumm Comment:Testing performed by : [address], [address] Hgb 13.5 11.9 - 15.5 g/dL [facility] (PETR) Comment:Testing performed by : [address], [address] Hct 40.0 35.6 - 45.5 % [facility] (PETR) Comment:Testing performed by : [address] [address] Plt 348 150 - 400 K/cumm [facility] ([facility]) Comment:Testing performed by : [address], [address] MPV 9.8 9.1 - 12.3 fL [facility] ([facility]) Comment:Testing performed by : [address], [address] RBC 4.46 3.90 - 5.20 M/cumm [facility] (PETR) Comment:Testing performed by : [facility], [address] [place] [address]., [address] MCV 89.7 81.3 - 96.4 fL [facility] (PETR) Comment:Testing performed by : [facility], [address] [place] [address], [address] MCH 30.3 27.1 - 33.3 pg [facility] (PETR) Comment:Testing performed by : [facility], [address] [place] [address], [address] MCHC 33.8 32.3 - 35.7 g/dL [facility] (PETR) Comment:Testing performed by : [facility], [address] [place] [address], [address] RDW CV 13.0 11.1 - 14.9 % [facility] (PETR) Comment:Testing performed by : [facility], [address] [place] [address], [address] RDW SD 43.0 35.7 - 48.1 fL [facility] (PETR) Comment:Testing performed by : [facility], [address] [place] [address], [address] NRBC abs 0.00 0.00 - 0.01 K/cumm [facility] (PETR) Comment:Testing performed by : [address], [address] Blood 05/01/2024 8:51 AM CDT 05/01/2024 12:27 PM CDT Kamron Jones MD LAB BLOOD ORDERABLES Anahi campa Result [facility] (PETR) 1 [facility] [place] [address] * Hepatitis C antibody Blood (05/01/2024 8:51 [...] revised on 2019. Testing performed by: [facility], [address] [place] [address]., [address] Blood 05/01/2024 8:51 AM CDT 05/01/2024 12:27 PM CDT Kamron Jones MD LAB MICROBIOLOGY - Atomic Mog[employer] L ORDERABLES Final Result [facility] ([place]) [address] [facility] [employer] [place], [place] [id number] * Hepatitis B core antibody, total Blood (05/01/2024 8:51 AM CDT) Hep B core IgG/IgM Nonreactive Nonreactive Comment:Testing performed by : [facility], [address] [place] [address], [address] Blood 05/01/2024 8:51 AM CDT 05/01/2024 1:58 PM CDT Kamron Jones MD LAB MICROBIOLOGY - [employer] L ORDERABLES Final Result Performing Organization Address City/[facility] Co de Phone Number [facility] ([place]) 1 [facility] Fuel ([email or web address]) [place] [address] * Hepatitis B surface antibody (immune status) [...] revised on 19. Testing performed by: [facility], [address] [place] [address]., [address] HBsAb (immune status) index 109.0 mIUnits/m L [facility] (PETR) Comment:Testing performed by : [facility], [address] [place] [address], [address] Blood 05/01/2024 8:51 AM CDT 05/01/2024 12:27 PM CDT Kamron Jones MD LAB MICROBIOLOGY - GENERA L ORDERABLES Final Result Performing Organization Address City/[facility] Co de Phone Number [facility] ([place]) [address] [facility] [address] * Hepatitis B Surface Antigen Blood (05/01/2024 8:51 AM CDT) HepBsAg Nonreactive Nonreactive Comment:Testing performed by : [facility], [address] [place] [address], [address] Blood 05/01/2024 8:51 AM CDT 05/01/2024 12:27 PM CDT Kamron Jones MD LAB MICROBIOLOGY - GENERA L ORDERABLES Final Result Performing Organization Address [facility] de Phone Number [facility]ERALD IGNACIO ([place]) 1 [facility] Fuel ([email or web address]) [place] [address] * Lipid panel (05/01/2024 8:51 AM CDT) [...] revised on 2017. Testing performed by: [facility], [address], [place]., [address] Triglycerides 77 <=149 mg/dL [facility] (PETR) [...] revised on 2017. Testing performed by: [facility], [address] [place] [address]., [address] HDL 53 >=40 mg/dL G[facility]D Miller (PETR) [...] revised on 2017. Testing performed by: [facility], [address] [place] [address]., [address] LDL, calculated 113 <=129 mg/dL [facility] IGNAC[facility] [...] 2. NCEP Expert Panel. Circulation 2004;110:227 3. Quintanilla M et al. ESTHER Cardiol. 2020 June 13;5(5):540-548. doi: 10.1001/jamacardio.2020.0013 Current Interpretive Data was last revised on 2023. Testing performed by: [address] [address] Non-HDL Cholesterol 127 mg/dL [facility] (PETR) [...] last revised on 2017. Testing performed by: [address] [address] Chol/HDL ratio 3 AIDEN IGNAC[facility] (EPTR) Comment:Testing performed by : [address] [address] Blood 05/01/2024 8:51 AM CDT 05/01/2024 12:27 PM CDT Kamron Jones MD LAB BLOOD ORDERABLES Anahi campa Result [facility] (PETR) 1 [facility] Department [place] [address] * Comprehensive metabolic panel (05/01/2024 8:51 AM CDT) [facility] Signature Sodium 138 135 - 145 mmol/L Comment:Testing performed by : [address] [address] Potassium, pl 3.7 3.3 - 4.9 mmol/L [facility] (PETR) Comment:Testing performed by : [address], [place]., [address] Chloride 101 97 - 110 mmol/L [facility] (PETR) Comment:Testing performed by : [facility], [address] [place] [address]., [address] CO2 24 22 - 32 mmol/L [facility] (PETR) Comment:Testing performed by : [facility], [address] [place] [address], [address] Anion gap 13 2 - 15 mmol/L [facility] (PETR) Comment:Testing performed by : [facility], [address] [place] [address], [address] BUN 9 6 - 25 mg/dL [facility] (PETR) Comment:Testing performed by : [address], [address] Creatinine 0.62 0.60 - 1.10 mg/dL [facility] (PETR) Comment:Testing performed by : [address], [address] Glucose 84 70 - 199 mg/dL CERNER [...] classification and Diagnosis of Diabetes Diabetes Care 2021; 46: S19-S40. Current interpretive data was last revised 2022. Testing performed by: [facility], [address] [place] [address]., [address] Calcium 9.4 8.5 - 10.3 mg/dL [facility] (PETR) Comment:Testing performed by : [address] [address] Bilirubin, total 0.3 0.1 - 1.2 mg/dL [facility] (PETR) Comment:Testing performed by : [address], [address] Protein, pl 7.6 6.5 - 8.5 g/dL [facility] (PETR) Comment:Testing performed by : [facility], [address] [place] [address], [address] Albumin 4.3 3.5 - 5.0 g/dL [facility] (PETR) Comment:Testing performed by : [address], [address] Alk phos 85 40 - 130 Units/L [facility] (PETR) Comment:Testing performed by : [address], [address] ALT 38 7 - 45 Units/L [facility] (PETR) Comment:Testing performed by : [facility], [address] [place] [address], [address] AST 29 10 - 45 Units/L [facility] (PETR) Comment:Testing performed by : [address], [address] Blood 05/01/2024 8:51 AM CDT 05/01/2024 12:27 PM CDT us Kamron Jones MD LAB BLOOD ORDERABLES Anahi l Result [facility] (PETR) 1 [facility] [place] [address] * PA ARTHROCENTESIS ASPIR&/INJ MAJOR JT/BURSA W/O US (03/25/2024 2:15 PM ENGINE MAINTENANCE MECHANIC) Narrative Esa Metzger PA - 03/25/2024 2:15 PM ENGINE MAINTENANCE MECHANIC Esa Metzger PA 03/25/2024 2:28 PM Large [...] Most Recently Relevant to Health Maintenance Insurance [facility] Advance Directives For more information, please contact: [phone] Documents on File Type Date Recorded Patient Can Filler Expl anation ADVANCE DIRECTIVE 10/28/2022 8:02 AM Power of Rn Case Manager [facility]ospice[facility] * Full Code (Latest Code Status on File) Date Activated Date Inactivated Comments 12/29/2021 10:51 AM 01/04/2022 1:53 PM * Full Code Date Activated Date Inactivated Comments 11/02/2021 12:32 PM 11/02/2021 7:38 PM * Full Code Date Activated Date Inactivated Comments 11/02/2021 12:31 PM 11/02/2021 12:32 PM Care Teams Electric Solderer Relationship Specialty Start Date End Date Kamron Jones MD [address] [place] [address] PCP - General 10/31/21 Kamron Jones MD [address] [place] [address] Family Medicine 10/31/21
--- OUTSIDE RECORDS SUMMARY | 2024-06-16 00:32 | XMS_ITS | Encounter Summary ---
Author Organization [facility] Healthcare Address [address] [place] [address] Care Team Providers Care Saw Cleaner Name Role Phone Kamron Jones MD Primary Care Provider [phone] Kamron Jones MD Unavailable [phone] Encounter Details Date Type Department Care Team (Late st Contact Info) Description 05/08/2024 Results [facility]Up [facility] [address] [phone] Kamron Jones MD [address] [place] [address] Social History Tobacco Use Types Packs/Day Years Used Date Smoking Tobacco: Former Cigarettes 1 31.2 1 991 - 04/28/2021 Vaping Smokeless Tobacco: Never Alcohol Use Standard Drinks/Week Comments Defer 0 [...] on file Legal Sex Female 11:44 AM IT WEB DEVELOPMENT CONSULTANT Gender Identity Female 02/16/2022 6:33 PM IT WEB DEVELOPMENT CONSULTANT Sexual Orientation Straight 02/02/2023 7: 45 AM IT WEB DEVELOPMENT CONSULTANT 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
--- OUTSIDE RECORDS SUMMARY | 2024-06-16 00:32 | XMS_ITS | Clinical Summary ---
Author Organization [facility] Address [address] [place] [address] Phone Care Team Providers Care Hand Paster Name Role Phone Kamron Jones MD Primary Care Provider [phone] Allergies No known active allergies Medications norethindrone-e thinyl estradiol (ORTHO-NOVUM 1-35 TAB, NORTREL 1-35 TAB) 1-35 MG-MCG TabletIndicatio ns:Heavy Menstrual Bleeding Take 1 Tab by mouth daily. START WHEN PREMARIN FINISHED 28 Tab 06/27/2017 Active ondansetron (ZOFRAN) 4 MG Tablet Take 1 Tab by mouth every 8 hours as needed for Nausea - 1st line. 10 Tab 06/27/2017 Active sertraline (ZOLOFT) 25 MG Tablet Take 25 mg by mouth daily. Active Social History Tobacco Use Types Packs/Day Years Used Date Smoking Tobacco: Every Day Cigarettes Smokeless Tobacco: Never Alcohol Use Standard Drinks/Week Comments No 0 (1 standard drink = 0.6 oz pur e alcohol) Comments No Sex and Gender Information Value Date Recorded Sex Assigned at Not on file Legal Sex Female 9:42 PM CDT Gender Identity Not on file Sexual Orientation Not on file Last Filed Vital Signs Vital Sign Reading Time Taken Comments Blood Pressure 118/69 08/01/2017 10:20 AM CDT Pulse 81 08/01/2017 10:20 AM CDT Temperature 36.6 C (97.9 F) 08/01/2017 10:20 AM CDT Respiratory Rate 18 08/01/2017 10:20 AM CDT Oxygen Saturation 95% 08/01/2017 10:20 AM CDT Inhaled Oxygen Concentration - - Weight 113.4 kg (250 lb) 08/01/2017 10:20 AM CDT Height 165.1 cm (5' 5 ) 08/01/2017 10:20 AM CDT Body Mass Index 41.6 08/01/2017 10:20 AM CDT Plan of Treatment Health Maintenance Due Date Last Done Comments Hepatitis C Virus (HCV) Screening 1980 TdaP Immunization 1980 Hepatitis B Immunization (1 of 3 - 19+ 3-dose series) 10/10/1999 Pap Smear 2001 Cervical Cancer Screening (CCS) 2010 HPV/Cotest 2010 Mammogram 06/05/2023 06/04/2022, 04/28/2021 Influenza Immunization (#1) 2023 11/22/2021 SARS-COV-2 Immunization ( season) 2023 03/01/2022, 11/22/2021, 10/21/2021 Respiratory Syncytial Virus (RSV) Immunization (Adult) (1 - 1-dose 75+ series) 10/10/2055 Discussion re Starting/Frequency of Mammograms Completed 06/04/2022, 04/28/2021 Meningococcal Immunization (ACWY) Aged Out No longer eligible b ased on patient's age to complete this topic Pneumococcal Immunization Combined Aged Out No longer eligible b ased on patient's age to complete this topic Rotavirus Immunization Aged Out No lo nger eligible based on patient's age to complete this topic Insurance [facility] Care Teams Hand Paster Relationship Specialty Start Date End Date Kamron Jones MD [address] [place] [address] PCP - General Family Medicine 10/28/21
[2024-06-16] MEDS: ASPIRIN 81 MG CHEWABLE TABLET 324 MG PO (00:51)
[2024-06-16 01:00] LABS: Basophils Absolute Auto 0.1 K/mm3 (0.0-0.1); Basophils Percent Auto 0.6 % (0.2-1.2); Eosinophils Absolute Auto 0.4 K/mm3 (0-0.3); Eosinophils Percent Auto 3.5 % (0-4.4); Hematocrit 42.6 % (37.0-47.0); Hemoglobin 14.7 g/dL (12.0-15.0); Immature Granulocyte Absolute 0.05 K/mm3 (0.00-0.031); Immature Granulocyte Percent A 0.5 % (0-0.5); Lymphocytes Absolute Auto 3.02 K/mm3 (0.9-3.2); Lymphocytes Percent Auto 28.1 % (18.3-44.2); Mean Corpuscular HGB Conc 34.5 g/dl (32-36); Mean Corpuscular Hemoglobin 30.1 pg (26-34); Mean Corpuscular Volume 87.1 fl (80-100); Mean Platelet Volume 9.5 fl (7.4-10.4); Monocytes Absolute Auto 0.7 K/mm3 (0.1-0.6); Monocytes Percent Auto 6.6 % (2.6-8.5); Neutrophils Absolute Auto 6.5 K/mm3 (1.3-6.7); Neutrophils Percent Auto 60.7 % (45.5-73.1); Platelet Count Result 415 k/mm3 (150-375); Red Blood Count 4.89 M/mm3 (4.2-5.4); Red Cell Distribution Width 12.7 % (11.5-14.5); White Blood Count 10.8 K/mm3 (4.5-10.0)
[2024-06-16] MEDS: BELLADONNA ALK/PHENOB ELIX 10 ML, MAG HYDROX/ALUMINUM HYD/SIMETH 30 ML, LIDOCAINE 2% VI... PO (01:02)
[2024-06-16 01:13] LABS: Partial Thromboplastin Time 27.8 Seconds (22.3-36.8)
--- OUTSIDE RECORDS SUMMARY | 2024-06-16 01:17 | XMS_ITS | Referral Summary ---
Author Organization [facility] Address [address] [place] [address] Care Team Providers Care Housekeeper Head Name Role Phone Kamron Jones MD Primary Care Provider [phone] Kamron Jones MD Unavailable [phone] Encounters Date Type Department Care Team Description 06/05/2024 Telephone [facility] Orthopedics and Sports Medicine [address] [facility] [address] [place] [address] Esa Metzger PA 05/08/2024 Results [facility] [address] [address] Kamron Jones MD 05/07/2024 9:30 AM CDT Lab [facility] [address] [place] [address] Morbid obesity with BMI of 45.0-49.9, adult (HCC); History of sleeve gastrectomy 05/07/2024 9:00 AM CDT Office Visit [facility] [address] [address] Kamron Jones MD History of [...] sleep apnea) 05/01/2024 8:40 AM CDT Lab [facility] [address] [place] [address] Lipid screening; Encounter for hepatitis C screening test for low risk patient; Need for hepatitis B screening test 04/30/2024 Telephone [facility] [place] [address] [place] [address] Kamron Jones MD Labs Only 03/25/2024 2:15 PM NAIL STICKER Office Visit [facility] Orthopedics and Sports Medicine [address] [facility] [address] [place] [address] Esa Metzger PA Primary osteoarthritis [...] 03/10/2023 Assessment & Plan (03/10/2023 9:43 AM NAIL STICKER): S/p hysterectomy; occurences of incontinence Referral to PT for pelvic floor therapy Chronic pain of right knee 03/10/2023 Assessment & Plan (03/10/2023 9:45 AM NAIL STICKER): Update xray ordered Discussed ortho referral pending [...] changes. Assessment & Plan (02/01/2022 1:50 PM NAIL STICKER): Stable, improving, pain is down to 3/10 -doing well with diet; on pureed diet at this time -continues to have weight loss Tobacco use disorder, moderate, in sustained rem ission 06/03/2021 Overview (01/14/2022): Quit date 04/2021 Assessment & Plan (02/01/2022 1:52 PM NAIL STICKER): Quit smoking, doing well Assessment & Plan [...] daily Assessment & Plan (03/10/2023 9:42 AM NAIL STICKER): Stable, follows with psychiatry Continue Sertraline 200 mg daily, BuSpar 10 mg TID; Aripiprazole 20 mg daily Assessment & Plan (07/15/2022 12:38 PM CDT): Recently increased due to multiple stressors; follows with Psychiatry, has regular talk therapy Continue Abilify 20 mg daily, BuSpar 5 mg b.i.d., sertraline 200 mg daily Assessment & Plan (02/01/2022 1:52 PM NAIL STICKER): Had initially stopped medication due to concerns of constipation; now taking medications to management worsening anxiety -continue abilify 20 mg daily, sertraline 200 mg daily Assessment & Plan (06/03/2021 10:49 AM CDT): Stable, well controlled; patient continues to follow psychiatry for management Continue Abilify 50 mg daily, sertraline 125 mg daily Assessment & Plan (03/31/2021 9:01 AM NAIL STICKER): Stable, falls psychiatry; has good relief symptoms [...] monitor Assessment & Plan (03/31/2021 9:01 AM NAIL STICKER): Stable, well controlled; patient reports significant improvement [...] for her knee replacement surgery [facility] to [facility] She has tried Wellbutrin, Phentermine and Diethylpropion [...] surgery Assessment & Plan (03/10/2023 9:44 AM NAIL STICKER): 10 pound weight gain since November Discussed [...] imaging Assessment & Plan (02/08/2022 10:35 AM NAIL STICKER): The patient is okay for activities unrestricted. [...] today Assessment & Plan (03/31/2021 9:00 AM NAIL STICKER): Not well controlled, patient has been working [...] 11/17/2023 Assessment & Plan (02/01/2022 1:51 PM NAIL STICKER): Has been having pain, few episodes of constiaption -continue OTC management; treat constipation with milk of magnesia Heartburn 10/29/2021 11/17/2023 Overview (10/29/2021): Added automatically from request for surgery [id number] Immunizations Immunization Administration Dates Next Due Influenza, [...] on file Legal Sex Female 11:44 AM NAIL STICKER Gender Identity Female 02/16/2022 6:33 PM NAIL STICKER Sexual Orientation Straight 02/02/2023 7: 45 AM NAIL STICKER 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 [place] [employer] [id number] 01/10/2027 [id number] / / [id number] Procedures Procedure Name Priority Date/Time Associated Diagnosis [...] C screening test for low risk patient [place] ARTHROCENTESIS ASPIR&/INJ MAJOR JT/BURSA W/O US Routine 03/25/2024 2:15 PM NAIL STICKER Primary osteoarthritis of right knee SCREENING MAMMOGRAM [...] Assay calibrated to WHO and instituted at [facility] 06/2017. References: 1. [employer] IGF-1 Package Insert 2016-11, V 1.0. 2. [facility] [facility] IGFMS entry (https://e[employer].com/test-catalog/Overview/60993) accessed 06-21-2017. 3. Kendal M, Osman N, Nick RT et al. J Clin Endocrinol Metab 2014;99:0546-9603. Current interpretive data was last revised on 2017. Testing performed by: [facility], [place]., [address] Blood 05/07/2024 9:36 AM CDT 05/07/2024 2:05 PM CDT Kamron Jones MD LAB BLOOD ORDERABLES Anahi l Result [facility] ([place]) [address] [facility] Department of Laboratories [place] [id number] * C-peptide (05/07/2024 9:36 AM CDT) C-peptide 4.06 1.10 - 4.40 ng/mL Comment:Testing performed by : [facility], [address] [place] [address]., [id number] Blood 05/07/2024 9:36 AM CDT 05/07/2024 1:57 PM CDT Kamron Jones MD LAB BLOOD ORDERABLES Anahi l Result [facility] ([place]) 1 [facility] Department [place] [address] * eGFR (05/01/2024 8:51 AM CDT) eGFR [...] was last reviewed 2020. Testing performed by: [address] [address] Blood 05/01/2024 8:51 AM CDT 05/01/2024 12:43 PM CDT us Kamron Jones MD LAB BLOOD ORDERABLES Anahi campa Result [facility] ([place]) 1 [facility] Department [place] [address] * Differential, auto (05/01/2024 8:51 AM CDT) Pathologist [facility] Neutrophil abs 5.6 1.5 - 6.5 K/cumm Comment:Testing performed by : [address] [address] Imm gran abs 0.0 0.0 - 0.1 K/cumm [facility] ([facility]) Comment:Testing performed by : [address] [address] Lymphocyte abs 2.9 0.8 - 3.3 K/cumm [facility] ([facility]) Comment:Testing performed by : [facility], [address] [place] [address]., [address] Monocyte abs 0.5 0.2 - 0.8 K/cumm [facility] ([facility]) Comment:Testing performed by : [facility], [address] [place] [address]., [address] Eosinophil abs 0.3 0.0 - 0.5 K/cumm [facility] ([facility]) Comment:Testing performed by : [facility], [address] [place] [address]., [address] Basophil abs 0.1 0.0 - 0.1 K/cumm [facility] ([facility]) Comment:Testing performed by : [address] [address] Neutrophil pct 59.6 % [facility] ([facility]) Comment: Interpretive Data Percent cell count reference ranges are not reported, since discordance with absolute values may lead to misinterpretation of CBC data. Current Interpretive Data was last revised on 2017. Testing performed by: [facility], [address] [place] [address]., [address] Imm gran pct 0.3 % [facility] ([facility]) Comment: Interpretive Data Percent cell count reference ranges are not reported, since discordance with absolute values may lead to misinterpretation of CBC data. Current Interpretive Data was last revised on 2017. Testing performed by: [address] [address] Lymphocyte pct 30.8 % [facility] ([facility]) Comment: Interpretive Data Percent cell count reference ranges are not reported, since discordance with absolute values may lead to misinterpretation of CBC data. Current Interpretive Data was last revised on 2017. Testing performed by: [address] [address] Monocyte pct 5.6 % [facility] ([facility]) Comment: Interpretive Data Percent cell count reference ranges are not reported, since discordance with absolute values may lead to misinterpretation of CBC data. Current Interpretive Data was last revised on 2017. Testing performed by: [address] [place]., [address] Eosinophil pct 3.1 % [facility] ([facility]) Comment: Interpretive Data Percent cell count reference ranges are not reported, since discordance with absolute values may lead to misinterpretation of CBC data. Current Interpretive Data was last revised on 2017. Testing performed by: [facility], [address] [place] [address]., [address] Basophil pct 0.6 % [facility] ([facility]) Comment: Interpretive Data Percent cell count reference ranges are not reported, since discordance with absolute values may lead to misinterpretation of CBC data. Current Interpretive Data was last revised on 2017. Testing performed by: [facility], [address] [place] [address]., [address] Blood 05/01/2024 8:51 AM CDT 05/01/2024 12:27 PM CDT us Kamron Jones MD LAB BLOOD ORDERABLES Anahi campa Result [facility] ([facility]) 1 [facility] Department [place] [address] * CBC with auto differential (05/01/2024 8:51 AM CDT) WBC 9.3 3.8 - 9.9 K/cumm Comment:Testing performed by : [facility], [address] [place] [address], [address] Hgb 13.5 11.9 - 15.5 g/dL [facility] ([facility]) Comment:Testing performed by : [facility], [address] [place] [address], [address] Hct 40.0 35.6 - 45.5 % [facility] ([facility]) Comment:Testing performed by : [facility], [address] [place] [address], [address] Plt 348 150 - 400 K/cumm [facility] ([facility]) Comment:Testing performed by : [address], [address] MPV 9.8 9.1 - 12.3 fL [facility] ([facility]) Comment:Testing performed by : [address] [place]., [address] RBC 4.46 3.90 - 5.20 M/cumm [facility] ([facility]) Comment:Testing performed by : [facility], [address] [place] [address], [address] MCV 89.7 81.3 - 96.4 fL [facility] ([facility]) Comment:Testing performed by : [facility], [address] [place] [address], [address] MCH 30.3 27.1 - 33.3 pg [facility] ([facility]) Comment:Testing performed by : [address], [address] MCHC 33.8 32.3 - 35.7 g/dL [facility] ([facility]) Comment:Testing performed by : [address], [address] RDW CV 13.0 11.1 - 14.9 % [facility] ([facility]) Comment:Testing performed by : [address], [address] RDW SD 43.0 35.7 - 48.1 fL [facility] ([facility]) Comment:Testing performed by : [address], [address] NRBC abs 0.00 0.00 - 0.01 K/cumm [facility] ([facility]) Comment:Testing performed by : [address], [address] Blood 05/01/2024 8:51 AM CDT 05/01/2024 12:27 PM CDT us Kamron Jones MD LAB BLOOD ORDERABLES Anahi campa Result [facility] ([facility]) 1 [facility] Department of Laboratories [place], [place] [id number] * Hepatitis C antibody Blood (05/01/2024 8:51 [...] last revised on 2019. Testing performed by: [facility], [address] [place] [address]., [address] Blood 05/01/2024 8:51 AM CDT 05/01/2024 12:27 PM CDT Kamron Jones MD LAB MICROBIOLOGY - GENERA L ORDERABLES Final Result [facility] ([facility]) 1 [facility] [place] [address] * Hepatitis B core antibody, total Blood (05/01/2024 8:51 AM CDT) Hep B core IgG/IgM Nonreactive Nonreactive Comment:Testing performed by : [facility], [address] [place] [address]., [address] Blood 05/01/2024 8:51 AM CDT 05/01/2024 1:58 PM CDT Kamron Jones MD LAB MICROBIOLOGY - GENERA L ORDERABLES Final Result [facility] ([place]) [address] [place] [address] [place] [address] * Hepatitis B surface antibody (immune status) [...] last revised on 19. Testing performed by: [facility], [address] [place] [address]., [address] HBsAb (immune status) index 109.0 mIUnits/m L [facility] ([place]) Comment:Testing performed by : [facility], [address] [place] [address]., [address] Blood 05/01/2024 8:51 AM CDT 05/01/2024 12:27 PM CDT Kamron Jones MD LAB MICROBIOLOGY - GENERA L ORDERABLES Final Result Performing Organization Address City/[facility]/ZIP Co de Phone Number [facility] ([place]) 1 [facility] [place] [address] * Hepatitis B Surface Antigen Blood (05/01/2024 8:51 AM CDT) HepBsAg Nonreactive Nonreactive Comment:Testing performed by : [facility], [address] [place] [address]., [address] Blood 05/01/2024 8:51 AM CDT 05/01/2024 12:27 PM CDT Kamron Jones MD LAB MICROBIOLOGY - GENERA L ORDERABLES Final Result Performing Organization Address City/[facility]/ZIP Co de Phone Number [facility] ([place]) 1 [facility] [place] [address] * Lipid panel (05/01/2024 8:51 AM CDT) [...] last revised on 2017. Testing performed by: [facility], [address] [place] [address]., [address] Triglycerides 77 <=149 mg/dL [facility] ([place]) [...] last revised on 2017. Testing performed by: [facility], [address] [place] [address]., [address] HDL 53 >=40 mg/dL [facility] [place] ([facility]) [...] last revised on 2017. Testing performed by: [facility], [address] [place] [address]., [address] LDL, calculated 113 <=129 mg/dL [facility] [...] last revised on 2023. Testing performed by: [address] [address] Non-HDL Cholesterol 127 mg/dL [facility] ([place]) [...] last revised on 2017. Testing performed by: [address] [address] Chol/HDL ratio 3 [facility] ([place]) Comment:Testing performed by : [address] [address] Blood 05/01/2024 8:51 AM CDT 05/01/2024 12:27 PM CDT us Kamron Jones MD LAB BLOOD ORDERABLES Anahi campa Result [facility] ([place]) 1 [facility] Department [place] [address] * Comprehensive metabolic panel (05/01/2024 8:51 AM CDT) [facility] Sodium 138 135 - 145 mmol/L Comment:Testing performed by : [address] [address] Potassium, pl 3.7 3.3 - 4.9 mmol/L [facility] ([facility]) Comment:Testing performed by : [facility], [address] [place] [address]., [address] Chloride 101 97 - 110 mmol/L [facility] ([facility]) Comment:Testing performed by : [address] [address] CO2 24 22 - 32 mmol/L [facility] ([facility]) Comment:Testing performed by : [address] [address] Anion gap 13 2 - 15 mmol/L [facility] ([facility]) Comment:Testing performed by : [address], [address] BUN 9 6 - 25 mg/dL [facility] ([facility]) Comment:Testing performed by : [address], [address] Creatinine 0.62 0.60 - 1.10 mg/dL [facility] ([facility]) Comment:Testing performed by : [address], [address] Glucose 84 70 - 199 mg/dL [facility] [...] was last revised 2022. Testing performed by: [facility], [address] [place] [address]., [address] Calcium 9.4 8.5 - 10.3 mg/dL [facility] ([facility]) Comment:Testing performed by : [address], [address] Bilirubin, total 0.3 0.1 - 1.2 mg/dL [facility] ([facility]) Comment:Testing performed by : [address] [address] Protein, pl 7.6 6.5 - 8.5 g/dL [facility] ([facility]) Comment:Testing performed by : [facility], [address] [place] [address]., [address] Albumin 4.3 3.5 - 5.0 g/dL [facility] ([facility]) Comment:Testing performed by : [facility], [address] [place] [address], [address] Alk phos 85 40 - 130 Units/L [facility] ([facility]) Comment:Testing performed by : [facility], [address] [place] [address], [address] ALT 38 7 - 45 Units/L [facility] ([facility]) Comment:Testing performed by : [facility], [address] [place] [address], [address] AST 29 10 - 45 Units/L [facility] ([facility]) Comment:Testing performed by : [facility], [address] [place] [address], [address] Blood 05/01/2024 8:51 AM CDT 05/01/2024 12:27 PM CDT us Kamron Jones MD LAB BLOOD ORDERABLES Anahi l Result [facility] ([place]) 1 [facility] Department [place] [address] * [place] ARTHROCENTESIS ASPIR&/INJ MAJOR JT/BURSA W/O US (03/25/2024 2:15 PM NAIL STICKER) Narrative Esa Metzger PA - 03/25/2024 2:15 PM NAIL STICKER Esa Metzger PA 03/25/2024 2:28 PM Large [...] Most Recently Relevant to Health Maintenance Insurance [facility] CHOICE PLUS R [facility] Advance Directives For more information, please contact: [phone] Documents on File Type Date Recorded Patient Sleeve Ironer Expl anation ADVANCE DIRECTIVE 10/28/2022 8:02 AM Power of Production Packager-Medical * Full Code (Latest Code Status on File) Date Activated Date Inactivated Comments 12/29/2021 10:51 AM 01/04/2022 1:53 PM * Full Code Date Activated Date Inactivated Comments 11/02/2021 12:32 PM 11/02/2021 7:38 PM * Full Code Date Activated Date Inactivated Comments 11/02/2021 12:31 PM 11/02/2021 12:32 PM Care Teams Housekeeper Head Relationship Specialty Start Date End Date Kamron Jones MD [address] [place] [address] PCP - General 10/31/21 Kamron Jones MD [address] [place] [address] Family Medicine 10/31/21
--- OUTSIDE RECORDS SUMMARY | 2024-06-16 01:17 | XMS_ITS | Clinical Summary ---
Author Organization [facility] Address [address] [place] [address] Phone Care Team Providers Care Land Checker Name Role Phone Kamron Jones MD Primary Care Provider Allergies No known active allergies Medications norethindrone-e [...] patient's age to complete this topic Insurance [facility] Care Teams Land Checker Relationship Specialty Start Date End Date Kamron Jones MD [address] [place] [address] PCP - General Family Medicine 10/28/21
--- OUTSIDE RECORDS SUMMARY | 2024-06-16 01:17 | XMS_ITS | Encounter Summary ---
Author Organization [facility] Address [address] [place] [address] Care Team Providers Care Control Systems Technician Name Role Phone Kamron Jones MD Primary Care Provider [phone] Kamron Jones MD Unavailable Encounter Details Date Type Department Care Team (Late st Contact Info) Description 05/08/2024 Results [facility]Up [facility] [address] [id number] Kamron Jones MD [address] [place] [address] Social History Tobacco Use Types [...] on file Legal Sex Female 11:44 AM INSTRUMENT PANEL ASSEMBLER Gender Identity Female 02/16/2022 6:33 PM INSTRUMENT PANEL ASSEMBLER Sexual Orientation Straight 02/02/2023 7: 45 AM INSTRUMENT PANEL ASSEMBLER 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
--- OUTSIDE RECORDS SUMMARY | 2024-06-16 01:17 | XMS_ITS | Clinical Summary ---
Author Organization [facility] Address [address] [place] [address] Care Team Providers Care Machine Operator Slitter Technician Name Role Phone Kamron Jones MD Primary Care Provider [phone] Kamron Jones MD Unavailable [phone] Allergies No known active allergies Medications ARIPiprazole [...] 03/10/2023 Assessment & Plan (03/10/2023 9:43 AM PRINT PRESS OPERATOR): S/p hysterectomy; occurences of incontinence Referral to PT for pelvic floor therapy Chronic pain of right knee 03/10/2023 Assessment & Plan (03/10/2023 9:45 AM PRINT PRESS OPERATOR): Update xray ordered Discussed ortho referral pending [...] tirzepatide;; if limited options, will refer to [facility] weight loss clinic Assessment & Plan (05/10/2022 [...] changes. Assessment & Plan (02/01/2022 1:50 PM PRINT PRESS OPERATOR): Stable, improving, pain is down to 3/10 -doing well with diet; on pureed diet at this time -continues to have weight loss Tobacco use disorder, moderate, in sustained rem ission 06/03/2021 Overview (01/14/2022): Quit date 04/2021 Assessment & Plan (02/01/2022 1:52 PM PRINT PRESS OPERATOR): Quit smoking, doing well Assessment & Plan [...] daily Assessment & Plan (03/10/2023 9:42 AM PRINT PRESS OPERATOR): Stable, follows with psychiatry Continue Sertraline 200 mg daily, BuSpar 10 mg TID; Aripiprazole 20 mg daily Assessment & Plan (07/15/2022 12:38 PM CDT): Recently increased due to multiple stressors; follows with Psychiatry, has regular talk therapy Continue Abilify 20 mg daily, BuSpar 5 mg b.i.d., sertraline 200 mg daily Assessment & Plan (02/01/2022 1:52 PM PRINT PRESS OPERATOR): Had initially stopped medication due to concerns of constipation; now taking medications to management worsening anxiety -continue abilify 20 mg daily, sertraline 200 mg daily Assessment & Plan (06/03/2021 10:49 AM CDT): Stable, well controlled; patient continues to follow psychiatry for management Continue Abilify 50 mg daily, sertraline 125 mg daily Assessment & Plan (03/31/2021 9:01 AM PRINT PRESS OPERATOR): Stable, falls psychiatry; has good relief symptoms [...] monitor Assessment & Plan (03/31/2021 9:01 AM PRINT PRESS OPERATOR): Stable, well controlled; patient reports significant improvement [...] for her knee replacement surgery M[facility]o [facility] She has tried Wellbutrin, Phentermine [...] surgery Assessment & Plan (03/10/2023 9:44 AM PRINT PRESS OPERATOR): 10 pound weight gain since November Discussed [...] imaging Assessment & Plan (02/08/2022 10:35 AM PRINT PRESS OPERATOR): The patient is okay for activities unrestricted. [...] today Assessment & Plan (03/31/2021 9:00 AM PRINT PRESS OPERATOR): Not well controlled, patient has been working [...] 11/17/2023 Assessment & Plan (02/01/2022 1:51 PM PRINT PRESS OPERATOR): Has been having pain, few episodes of constiaption -continue OTC management; treat constipation with milk of magnesia Heartburn 10/29/2021 11/17/2023 Overview (10/29/2021): Added automatically from request for surgery [id number] Encounters Date Type Department Care Team Description 06/05/2024 Telephone [facility] Orthopedics and Sports Medicine [address] [facility] [address] [place] [address] Esa Metzger PA 05/08/2024 Results Follow-Up [facility] [address] [place] [phone] Kamron Jones MD 05/07/2024 9:30 AM CDT Lab [facility] [address] [place] [id number] Morbid obesity with BMI of 45.0-49.9, adult (HCC); History of sleeve gastrectomy 05/07/2024 9:00 AM CDT Office Visit [facility] [address] [place] [phone] Kamron Jones MD History of sleeve gastrectomy [...] sleep apnea) 05/01/2024 8:40 AM CDT Lab [facility] [address] [place] [address] Lipid screening; Encounter for hepatitis C screening test for low risk patient; Need for hepatitis B screening test 04/30/2024 Telephone [facility] [address] [place] [address] Kamron Jones MD Labs Only 03/25/2024 2:15 PM PRINT PRESS OPERATOR Office Visit [facility] Orthopedics and Sports Medicine [address] [facility] [address] [place] [address] Esa Metzger PA Primary osteoarthritis [...] on file Legal Sex Female 11:44 AM PRINT PRESS OPERATOR Gender Identity Female 02/16/2022 6:33 PM PRINT PRESS OPERATOR Sexual Orientation Straight 02/02/2023 7: 45 AM PRINT PRESS OPERATOR 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 [employer] Not on file Not on file Not [...] this topic Medical Devices Implanted Type Area Powder Compounder Device Identifier Shelf Expiration Date Model / Serial / Lot Evomail Mammostar Tissue Barbell Marker Breast Biopsy Beta Glucan Ceramic [id number] - [id number] Implanted:Qty: 1 on 07/27/2022 at [facility] Evomail [id number] 01/10/2027 [id number] / / [id number] Procedures Procedure Name Priority Date/Time Associated Diagnosis [...] C screening test for low risk patient GA ARTHROCENTESIS ASPIR&/INJ MAJOR JT/BURSA W/O US Routine 03/25/2024 2:15 PM PRINT PRESS OPERATOR Primary osteoarthritis of right knee SCREENING MAMMOGRAM [...] Assay calibrated to WHO and instituted at [facility] 06/2017. References: 1. [employer]ys IGF-1 Package Insert 2016-11, V 1.0. 2. Ramos WO Funding IGFMS entry ([email or web address]/test-catalog/Overview/75575) accessed 06-21-2017. 3. Kendal M, Osman N, Nick RT et al. J Clin Endocrinol Metab 2014;99:2523-3400. Current interpretive data was last revised on 2017. Testing performed by: [facility], [place]., [address] Blood 05/07/2024 9:36 AM CDT 05/07/2024 2:05 PM CDT Kamron Jones MD LAB BLOOD ORDERABLES Anahi l Result GERALD IGNACIO (DURANT) [address] [place] [address] [employer] [address] * C-peptide (05/07/2024 9:36 AM CDT) [facility] C-peptide 4.06 1.10 - 4.40 ng/mL Comment:Testing performed by : [facility], [address] [place] [address]., [address] Blood 05/07/2024 9:36 AM CDT 05/07/2024 1:57 PM CDT Kamron Jones MD LAB BLOOD ORDERABLES Anahi l Result [facility] (PETR) [address] [facility] [place] [address] * eGFR (05/01/2024 8:51 AM CDT) eGFR [...] was last reviewed 2020. Testing performed by: [facility], [address] [place] [address], [address] Blood 05/01/2024 8:51 AM CDT 05/01/2024 12:43 PM CDT us Kamron Jones MD LAB BLOOD ORDERABLES Anahi campa Result GERALD IGNACIO (DUR[place]) [address] [facility] Department [place] [address] * Differential, auto (05/01/2024 8:51 AM CDT) Pathologist [facility] Neutrophil abs 5.6 1.5 - 6.5 K/cumm Comment:Testing performed by : [facility], [address] [place] [address]., [address] Imm gran abs 0.0 0.0 - 0.1 K/cumm GERALD IGNACIO (PETR) Comment:Testing performed by : [facility], [address] [place] [address], [address] Lymphocyte abs 2.9 0.8 - 3.3 K/cumm GERALD IGNACIO (PETR) Comment:Testing performed by : [facility], [address] [place] [address]., [address] Monocyte abs 0.5 0.2 - 0.8 K/cumm [facility] (PETR) Comment:Testing performed by : [facility], [address] [place] [address]., [address] Eosinophil abs 0.3 0.0 - 0.5 K/cumm [facility] (PETR) Comment:Testing performed by : [facility], [address] [place] [address]., [address] Basophil abs 0.1 0.0 - 0.1 K/cumm [facility] (PETR) Comment:Testing performed by : [facility], [address] [place] [address]., [address] Neutrophil pct 59.6 % [facility] R [facility] (PETR) Comment: Interpretive Data Percent cell count reference ranges are not reported, since discordance with absolute values may lead to misinterpretation of CBC data. Current Interpretive Data was last revised on 2017. Testing performed by: [facility], [address] [place] [address]., [address] Imm gran pct 0.3 % [facility] (PETR) Comment: Interpretive Data Percent cell count reference ranges are not reported, since discordance with absolute values may lead to misinterpretation of CBC data. Current Interpretive Data was last revised on 2017. Testing performed by: [facility], [address] [place] [address]., [address] Lymphocyte pct 30.8 % [facility] (PETR) Comment: Interpretive Data Percent cell count reference ranges are not reported, since discordance with absolute values may lead to misinterpretation of CBC data. Current Interpretive Data was last revised on 2017. Testing performed by: [address] [address] Monocyte pct 5.6 % [facility] (PETR) Comment: Interpretive Data Percent cell count reference ranges are not reported, since discordance with absolute values may lead to misinterpretation of CBC data. Current Interpretive Data was last revised on 2017. Testing performed by: [address] [address] Eosinophil pct 3.1 % [facility] (PETR) Comment: Interpretive Data Percent cell count reference ranges are not reported, since discordance with absolute values may lead to misinterpretation of CBC data. Current Interpretive Data was last revised on 2017. Testing performed by: [address] [address] Basophil pct 0.6 % [facility] (PETR) Comment: Interpretive Data Percent cell count reference ranges are not reported, since discordance with absolute values may lead to misinterpretation of CBC data. Current Interpretive Data was last revised on 2017. Testing performed by: [address], [address] Blood 05/01/2024 8:51 AM CDT 05/01/2024 12:27 PM CDT Kamron Jones MD LAB BLOOD ORDERABLES Anahi campa Result EGRALD IGNACIO (PETR) [address] [facility] Department [place] [address] * CBC with auto differential (05/01/2024 8:51 AM CDT) WBC 9.3 3.8 - 9.9 K/cumm Comment:Testing performed by : [address], [address] Hgb 13.5 11.9 - 15.5 g/dL [facility] (PETR) Comment:Testing performed by : [address], [address] Hct 40.0 35.6 - 45.5 % [facility] (PETR) Comment:Testing performed by : [address] [address] Plt 348 150 - 400 K/cumm [facility] (PETR) Comment:Testing performed by : [address], [address] MPV 9.8 9.1 - 12.3 fL [facility] (PETR) Comment:Testing performed by : [address], [address] RBC 4.46 3.90 - 5.20 M/cumm [facility] (PETR) Comment:Testing performed by : [facility], [address] [place] [address]., [address] MCV 89.7 81.3 - 96.4 fL GERALD IGNACIO (PETR) Comment:Testing performed by : [facility], [address] [place] [address], [address] MCH 30.3 27.1 - 33.3 pg GERALD IGNACIO (PETR) Comment:Testing performed by : [facility], [address] [place] [address], [address] MCHC 33.8 32.3 - 35.7 g/dL GERALD IGNACIO (PETR) Comment:Testing performed by : [facility], [address] [place] [address], [address] RDW CV 13.0 11.1 - 14.9 % GERALD IGNACIO (PETR) Comment:Testing performed by : [facility], [address] [place] [address], [address] RDW SD 43.0 35.7 - 48.1 fL GERALD IGNACIO (PETR) Comment:Testing performed by : [facility], [address] [place] [address], [address] NRBC abs 0.00 0.00 - 0.01 K/cumm GERALD IGNACIO (PETR) Comment:Testing performed by : [address], [address] Blood 05/01/2024 8:51 AM CDT 05/01/2024 12:27 PM CDT Kamron Jones MD LAB BLOOD ORDERABLES Anahi campa Result GERALD MATEUS (PETR) [address] [facility] Department [place] [address] * Hepatitis C antibody Blood (05/01/2024 8:51 [...] last revised on 2019. Testing performed by: [facility], [address] [place] [address]., [address] Blood 05/01/2024 8:51 AM CDT 05/01/2024 12:27 PM CDT Kamron Jones MD LAB MICROBIOLOGY - Bundle It L ORDERABLES Final Result [facility] ([place]) [address] [facility] [employer] [place], [place] [id number] * Hepatitis B core antibody, total Blood (05/01/2024 8:51 AM CDT) Hep B core IgG/IgM Nonreactive Nonreactive Comment:Testing performed by : [facility], [address] [place] [address], [address] Blood 05/01/2024 8:51 AM CDT 05/01/2024 1:58 PM CDT Kamron Jones MD LAB MICROBIOLOGY - Bundle It L ORDERABLES Final Result Performing Organization Address City/[facility] Co de Phone Number GERALD IGNACIO (DURANT) 1 [facility] [employer] [address] * Hepatitis B surface antibody (immune status) [...] last revised on 19. Testing performed by: [facility], [address] [place] [address]., [address] HBsAb (immune status) index 109.0 mIUnits/m L GERALD IGNACIO (PETR) Comment:Testing performed by : [facility], [address] [place] [address], [address] Blood 05/01/2024 8:51 AM CDT 05/01/2024 12:27 PM CDT Kamron Jones MD LAB MICROBIOLOGY - GENERA L ORDERABLES Final Result Performing Organization Address [facility] Co de Phone Number GERALD IGNACIO (DUR[place]) 1 [facility] [place] [address] * Hepatitis B Surface Antigen Blood (05/01/2024 8:51 AM CDT) HepBsAg Nonreactive Nonreactive Comment:Testing performed by : [facility], [address] [place] [address], [address] Blood 05/01/2024 8:51 AM CDT 05/01/2024 12:27 PM CDT Kamron Jones MD LAB MICROBIOLOGY - GENERA L ORDERABLES Final Result Performing Organization Address [facility] de Phone Number GERALD IGNACIO (DURANT) 1 [facility] [employer] [address] * Lipid panel (05/01/2024 8:51 AM CDT) [...] last revised on 2017. Testing performed by: [facility], [address], [place]., [address] Triglycerides 77 <=149 mg/dL GERALD IGNACIO (PETR) [...] last revised on 2017. Testing performed by: [facility], [address] [place] [address]., [address] HDL 53 >=40 mg/dL GERALD Miller (PETR) [...] last revised on 2017. Testing performed by: [facility], [address] [place] [address]., [address] LDL, calculated 113 <=129 mg/dL GERALD IGNACIO [...] last revised on 2023. Testing performed by: [address] [address] Non-HDL Cholesterol 127 mg/dL GERALD IGNACIO (PETR) [...] last revised on 2017. Testing performed by: [address] [address] Chol/HDL ratio 3 AIDEN IGNACIO (PETR) Comment:Testing performed by : [address] [address] Blood 05/01/2024 8:51 AM CDT 05/01/2024 12:27 PM CDT Kamron Jones MD LAB BLOOD ORDERABLES Anahi campa Result GERALD IGNACIO (PETR) 1 [facility] Department [place] [address] * Comprehensive metabolic panel (05/01/2024 8:51 AM CDT) [facility] Signature Sodium 138 135 - 145 mmol/L Comment:Testing performed by : [address] [address] Potassium, pl 3.7 3.3 - 4.9 mmol/L GERALD IGNACIO (PETR) Comment:Testing performed by : [address], [place]., [address] Chloride 101 97 - 110 mmol/L [facility] (PETR) Comment:Testing performed by : [facility], [address] [place] [address]., [address] CO2 24 22 - 32 mmol/L [facility] (PETR) Comment:Testing performed by : [facility], [address] [place] [address], [address] Anion gap 13 2 - 15 mmol/L [facility] (PETR) Comment:Testing performed by : [facility], [address] [place] [address], [address] BUN 9 6 - 25 mg/dL [facility] (PETR) Comment:Testing performed by : [address], [address] Creatinine 0.62 0.60 - 1.10 mg/dL [facility] (PETR) Comment:Testing performed by : [address], [address] Glucose 84 70 - 199 mg/dL CERNER [...] was last revised 2022. Testing performed by: [facility], [address] [place] [address]., [address] Calcium 9.4 8.5 - 10.3 mg/dL [facility] (PETR) Comment:Testing performed by : [address] [address] Bilirubin, total 0.3 0.1 - 1.2 mg/dL [facility] (PETR) Comment:Testing performed by : [address], [address] Protein, pl 7.6 6.5 - 8.5 g/dL [facility] (PETR) Comment:Testing performed by : [facility], [address] [place] [address], [address] Albumin 4.3 3.5 - 5.0 g/dL [facility] (PETR) Comment:Testing performed by : [address], [address] Alk phos 85 40 - 130 Units/L [facility] (PETR) Comment:Testing performed by : [address], [address] ALT 38 7 - 45 Units/L [facility] (PETR) Comment:Testing performed by : [facility], [address] [place] [address], [address] AST 29 10 - 45 Units/L [facility] (PETR) Comment:Testing performed by : [address], [address] Blood 05/01/2024 8:51 AM CDT 05/01/2024 12:27 PM CDT us Kamron Jones MD LAB BLOOD ORDERABLES Anahi l Result [facility] (PETR) 1 [facility] Department [place] [address] * GA ARTHROCENTESIS ASPIR&/INJ MAJOR JT/BURSA W/O US (03/25/2024 2:15 PM PRINT PRESS OPERATOR) Narrative Esa Metzger PA - 03/25/2024 2:15 PM PRINT PRESS OPERATOR Esa Metzger PA 03/25/2024 2:28 PM Large [...] Most Recently Relevant to Health Maintenance Insurance [facility] CHOICE PLUS R [facility] Advance Directives For more information, please contact: [phone] Documents on File Type Date Recorded Patient Decorating Kiln Operator Expl anation ADVANCE DIRECTIVE 10/28/2022 8:02 AM Power of Teacher Drama-Medical * Full Code (Latest Code Status on File) Date Activated Date Inactivated Comments 12/29/2021 10:51 AM 01/04/2022 1:53 PM * Full Code Date Activated Date Inactivated Comments 11/02/2021 12:32 PM 11/02/2021 7:38 PM * Full Code Date Activated Date Inactivated Comments 11/02/2021 12:31 PM 11/02/2021 12:32 PM Care Teams Machine Operator Slitter Technician Relationship Specialty Start Date End Date Kamron Jones MD [address] [place] [address] PCP - General 10/31/21 Kamron Jones MD [address] [place] [address] Family Medicine 10/31/21
[2024-06-16 01:25] LABS: D Dimer < 0.27 ug/mL (<0.48)
[2024-06-16 01:33] LABS: Alanine Aminotransferase 43 U/L (6-35); Albumin Level 4.8 g/dL (3.5-5.1); Alkaline Phosphatase 84 U/L (38-126); Anion Gap 13 mmol/L (4-12); Aspartate Amino Transferase 30 U/L (14-36); Bilirubin,Total 0.7 mg/dL (0.2-1.3); Blood Urea Nitrogen 9 mg/dL (7-17); Calcium 9.1 mg/dL (8.4-10.2); Carbon Dioxide 21 mmol/L (22-30); Chloride 104 mmol/L (98-107); Estimated CRCL calculation 128 ml/min; Estimated Glomerular Filt Rate > 60; Glucose 106 mg/dL (65-110); Lipase 132 U/L (23-300); Potassium 3.6 mmol/L (3.4-5.0); Sodium 138 mmol/L (137-145)
[2024-06-16 01:45] LABS: NT Pro B Type Natriuretic Pept 31 pg/mL (19.9-100); Troponin I < 0.012 ng/mL (0.000-0.034)
--- NOTE | 2024-06-16 03:41 | ECG_ITS ---
Test Date: 2024-06-16 03:42:51 Measurements Intervals [place] Rate: 69 P: 44 SD: 147 QRS: 26 QRSD: 93 T: 47 QT: 409 QTc: 440 Interpretive Statements SINUS RHYTHM Compared to ECG 06/16/2024 00:53:39 T-wave abnormality no longer present Electronically Signed On 06-16-2024 16:04:45 CDT by Mariana Tyler
--- NOTE | 2024-06-16 04:00 | ED.GENADULT ---
HPI - General Adult General Chief complaint: Chest Pain Stated complaint: L sided chest pain radiates into back and shoulder Time Seen by Provider: 06/16/24 00:47 History of Present Illness HPI narrative: Patient is a 43-year-old female who presents emergency department chief complaint of left-sided chest pain radiates the back and shoulders patient reports symptoms started 2 days ago reports that the been intermittent reports no nausea no vomiting no lightheadedness patient states that she has had some lightheadedness patient does report the pain goes into the left shoulder Related Data Home Medications ?Medication ?Instructions ?Recorded ?Confirmed ?Last Taken ?Type aripiprazole 15 mg tablet 15 mg PO DAILY 07/25/20 06/16/24 Unknown History sertraline 100 mg tablet 100 mg PO DAILY 07/25/20 06/16/24 Unknown History esomeprazole magnesium 20 mg mg 06/16/24 Unknown History capsule,delayed release Allergies Allergy/AdvReac Type Severity Reaction Status Date / Time No Known Allergies Allergy Verified 06/16/24 02:03 Review of Systems Review of Systems: A 10 system review of systems was completed on the patient and is negative except for what is stated in the HPI. Nursing and ancillary documentation was reviewed. [facility] Past Medical History Medical History Anxiety and depression Surgical History Surgical History Tubal ligation status Previous section Family History Family History Grandparent Heart disease Mother Hypertension Father Cancer of lung Social History Social History Tobacco type: e-cigarettes/vaping Alcohol intake: former Alcohol use details: social only Substance use: never Living arrangements: with family Gender identity (if verbalized by the patient): Female Exam Narrative: GENERAL: Well-appearing, well-nourished, and in no acute distress. HEAD: Normocephalic, atraumatic. EYES: PERRLA and EOMI. ENT: Nares clear, no rhinorrhea or epistaxis. Mucous membranes moist. NECK: Supple. CHEST: Clear to auscultation. No respiratory distress. HEART: Regular rate and rhythm. No murmur heard. Normal peripheral pulses. ABDOMEN: Soft, nontender, nondistended, normal active bowel sounds. EXTREMITIES: Normal range of motion. No edema. SKIN: Warm, dry, no rash. NEURO: No focal deficits. Alert and oriented x3. PSYCH: Normal mood and affect. Course Vital Signs Vital signs: Vital Signs Temperature 36.2 C L 06/16/24 00:31 Pulse Rate 89 06/16/24 00:31 Respiratory Rate 16 06/16/24 00:31 Blood Pressure 140/94 H 06/16/24 00:31 Pulse Oximetry 97 06/16/24 00:31 Oxygen Delivery Room Air 06/16/24 00:31 Temperature 36.2 C L 06/16/24 00:31 Pulse Rate 109 H 06/16/24 00:45 Respiratory Rate 16 06/16/24 00:31 Blood Pressure 140/94 H 06/16/24 00:31 Pulse Oximetry 97 06/16/24 00:31 Oxygen Delivery Room Air 06/16/24 00:45 Medical Decision Making [facility] Narrative Medical decision making narrative: Differential diagnosis includes ACS, gastroesophageal refluDisease, pancreatitis, PE. Patient had a negative D-dimer Troponin was 0 hour 3 hour Chest x-ray showed no focal infiltrate Vital Signs Vital Signs: Vital Signs Temperature 36.2 C L 06/16/24 00:31 Pulse Rate 89 06/16/24 00:31 Respiratory Rate 16 06/16/24 00:31 Blood Pressure 140/94 H 06/16/24 00:31 Pulse Oximetry 97 06/16/24 00:31 Oxygen Delivery Room Air 06/16/24 00:31 Temperature 36.2 C L 06/16/24 00:31 Pulse Rate 109 H 06/16/24 00:45 Respiratory Rate 16 06/16/24 00:31 Blood Pressure 140/94 H 06/16/24 00:31 Pulse Oximetry 97 06/16/24 00:31 Oxygen Delivery Room Air 06/16/24 00:45 Lab Data 06/16/24 00:49 06/16/24 00:49 Labs: Lab Results 06/16/24 06/16/24 06/16/24 Range/Units 00:49 00:49 03:39 WBC 10.8 H (4.5-10.0) K/mm3 RBC 4.89 (4.2-5.4) M/mm3 Hgb 14.7 (12.0-15.0) g/dL Hct 42.6 (37.0-47.0) % MCV 87.1 (80-100) fl MCH 30.1 (26-34) pg MCHC 34.5 (32-36) g/dl RDW 12.7 (11.5-14.5) % Plt Count 415 H (150-375) k/mm3 MPV 9.5 (7.4-10.4) fl Immature Gran % (Auto) 0.5 (0-0.5) % Neut % (Auto) 60.7 (45.5-73.1) % Lymph % (Auto) 28.1 (18.3-44.2) % [place] % (Auto) 6.6 (2.6-8.5) % Eos % (Auto) 3.5 (0-4.4) % Baso % (Auto) 0.6 (0.2-1.2) % Lymph # (Auto) 3.02 (0.9-3.2) K/mm3 [place] # (Auto) 0.7 H (0.1-0.6) K/mm3 Eos # (Auto) 0.4 H (0-0.3) K/mm3 Baso # (Auto) 0.1 (0.0-0.1) K/mm3 Abs Immat Gran (auto) 0.05 H (0.00-0.031) K/mm3 Absolute Neuts (auto) 6.5 (1.3-6.7) K/mm3 Absolute Nucleated RBC 0.000 (0.0-0.012) K/mm3 Nucleated RBC % 0.0 (0.0-0.2) % PT 13.0 (11.1-14.7) Seconds INR 1.0 APTT 27.8 (22.3-36.8) Seconds D-Dimer < 0.27 Cancelled (<0.48) ug/mL Sodium 138 (137-145) mmol/L Potassium 3.6 (3.4-5.0) mmol/L Chloride 104 (98-107) mmol/L Carbon Dioxide 21 L (22-30) mmol/L Anion Gap 13 H (4-12) mmol/L BUN 9 (7-17) mg/dL Creatinine 0.65 L (0.7-1.0) mg/dL Estim Creat Clear Calc 128 ml/min Estimated GFR > 60 (59 - ) Glucose 106 (65-110) mg/dL Calcium 9.1 (8.4-10.2) mg/dL Total Bilirubin 0.7 (0.2-1.3) mg/dL AST 30 (14-36) U/L ALT 43 H (6-35) U/L Alkaline Phosphatase 84 (38-126) U/L Troponin I < 0.012 < 0.012 (0.000-0.034) ng/mL NT-Pro-B Natriuret Pep 31 (19.9-100) pg/mL Total Protein 8.0 (6.3-8.2) g/dL Albumin 4.8 (3.5-5.1) g/dL Lipase 132 (23-300) U/L Discharge Plan Discharge Clinical Impression: Atypical chest pain Patient Disposition: Home Condition: Stable Instructions: Antibiotic Form, Chest Pain (ED) Patient Language: [place] Prescriptions: New sucralfate [Carafate] 1 gram tablet 1 g PO QID PRN (Reason: Reflux) 5 Days Qty: 20 0RF pantoprazole [Protonix] 40 mg tablet,delayed release (DR/EC) 40 mg PO HS 28 Days Qty: 28 0RF No Action aripiprazole 15 mg tablet 15 mg PO DAILY sertraline 100 mg tablet 100 mg PO DAILY polymyxin B sulf-trimethoprim 10,000 unit- 1 mg/mL drops 1 drp RIGHT EYE Q3H 7 Days Qty: 10 0RF Rx Instructions: while awake; do not exceed 6 doses in 24 hours methylprednisolone [Medrol (Kole)] 4 mg tablets,dose pack See Rx Instructions .ROUTE .COMPLEX Qty: 21 0RF Rx Instructions: orally per package directions esomeprazole magnesium 20 mg capsule,delayed release(DR/EC) Follow-up/Referrals: Robert,MD Kamron [Primary Care Provider] - Time of Disposition: 04:53
[2024-06-16 04:07] LABS: Troponin I < 0.012 ng/mL (0.000-0.034)
== END 2024-06-16 05:07 | disposition home or self-care (01) ==
PROVIDERS: Emergency Provider Emergency Medicine; PCP Hospitalist
DX: R07.89 Other chest pain (principal); Z87.891 Personal history of nicotine dependence
CPT/HCPCS: 36415; 71046; 80053; 83690; 83880; 84484; 85025; 85380; 85610; 85730; 93005; 99284; A9270

== ENCOUNTER 2024-08-18 22:08 | Emergency (ER) | payer OTHER, SELFPAY ==
--- NOTE | ~2024-08-18 | XR_ITS ---
EXAM: XR knee RT 3V DATE: 08/18/2024 22:26 HISTORY: fall . COMPARISON: None available. FINDINGS: Normal mineralization. No fracture or dislocation. No lytic or blastic lesion. Moderate tr icompartmental knee osteoarthritis. Small right knee joint effusion. No erosion or periosteal change. Anterior soft tissue contusion. IMPRESSION: No acute osseous finding in the right knee. Reviewed, dictated and finalized at location K.
[2024-08-18 22:10] VITALS: BP 165/90; PULSE 95; RESP 19; TEMP 36.6; O2SAT 100
--- OUTSIDE RECORDS SUMMARY | 2024-08-18 22:10 | XMS_ITS | Encounter Summary ---
Author Organization [facility] Healthcare Address [address] [place] [address] Care Team Providers Care Collection Team Lead Name Role Phone Kamron Jones MD Primary Care Provider [phone] Kamron Jones MD Unavailable [phone] Leni Ruvalcaba BARIATRIC NURSE Unavailable [phone] Encounter Details Date Type Department Care Team (Late st Contact Info) Description 07/30/2024 Results Follow[facility]Up [facility] [address] [address] Kamron Jones MD [address] [place] [address] US Breast Right Limited Social History Tobacco Use Types Packs/Day Years Used Date Smoking Tobacco: Former Cigarettes 1 31.2 1 991 - 04/28/2021 Vaping Smokeless Tobacco: Never Alcohol Use Standard Drinks/Week Comments Defer 0 (1 standard drink = 0.6 oz pur e alcohol) AUDIT-C Answer Date Recorded Q1: How often do you have a drink containing alcohol? Never 06/21/2024 Q2: How many drinks containi ng alcohol do you have on a typical day when you are drinking? Patient does not drink Q3: How often do you have si x or more drinks on one occasion? Never 06/21/2024 PHQ-2 Answer Date Recorded PHQ-2 Total Score (If total score is 3 or more points, staff should administer the PHQ-9) 4 06/21/2024 PHQ-9 Answer Date Recorded PHQ-9 Total Score 9 06/21/2024 Personal Safety Answer Date Recorded Have you ever been in or are you currently in a harmful physical or emotional relationship or is someone making you feel afraid or unsafe? 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 OPERATOR Gender Identity Female 02/16/2022 6:33 PM SCOW DERRICK OPERATOR Sexual Orientation Straight 02/02/2023 7: 45 AM SCOW DERRICK OPERATOR Occupation Industry Job Start Date Job End Date [place] in [place] at [place] Not on file Not on file Not on file documented as of this encounter Plan of Treatment Not on file documented as of this encounter Visit Diagnoses Not on filedocumented in this encounter Care Teams Collection Team Lead Relationship Specialty Start Date End Date Kamron Jones MD [address] [place] [address] PCP - General 10/31/21 Kamron Jones MD [address] [place] [address] Family Medicine 10/31/21 Leni Ruvalcaba, RAGINI [address] [place] [address] [place] [address] Nurse Practitioner Psychiatry 06/21/24 documented as of this encounter
--- OUTSIDE RECORDS SUMMARY | 2024-08-18 22:10 | XMS_ITS | Encounter Summary ---
Author Organization [facility] Healthcare Address [address] [place] [address] Care Team Providers Care Contract Programmer Name Role Phone Kamron Jones MD Primary Care Provider [phone] Kamron Jones MD Unavailable [phone] Leni Ruvalcaba NP Unavailable [phone] Reason for Visit * Reason Onset Date Comments Appointment Request 07/31/2024 Encounter Details Date Type Department Care Team (Late st Contact Info) Description 07/31/2024 Telephone [facility] [address] [facility] [place] [address] Kamron Jones MD [address] [place] [address] Appointment Request Social History Tobacco Use Types Packs/Day Years [...] on file Legal Sex Female 11:44 AM 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 * Telephone Encounter - Essie Bhatt - 07/31/2024 8:31 AM CDT Patient has an upcoming appt on 08/07... do you want to see patient before then, or do you want to review imaging? * Telephone Encounter - Daisha Licea MA - 07/31/2024 8:23 AM CDT Appointment Request What visit type does the patient need? Visit Type: Established Patient What is the reason for the visit? Patient completed her Mammogram on 07/30/24 and was advised to follow up with her PCP this week due to breast infection. Patient unable to come in today but would like to be seen either tomorrow or Monday. What is the reason we were unable to schedule the appointment? Current appointment availability didnot meet patient's need. If applicable, were all members of the patient's PCP care team offered (e.g., nurse practioner(s), physician producer assistant(s)) ? Yes Additional Comments: Call back needed please. Does message need to be routed? Yes-Action Needed documented in this encounter Plan of Treatment Not on file documented as of this encounter Visit Diagnoses Not on filedocumented in this encounter Care Teams Contract Programmer Relationship Specialty Start Date End Date Kamron Jones MD [address] [place] [address] PCP - General 10/31/21 Kamron Jones MD [address] [place] [address] Family Medicine 10/31/21 Leni Ruvalcaba NP [address] [place] [address] [place] [address] Nurse Practitioner Psychiatry 06/21/24 documented as of this encounter
--- OUTSIDE RECORDS SUMMARY | 2024-08-18 22:10 | XMS_ITS | Referral Summary ---
Author Organization [facility] Address [address] [place] [address] Care Team Providers Care Nurse Orthopaedic Name Role Phone Kamron Jones MD Primary Care Provider [phone] Kamron Jones MD Unavailable [phone] Leni Ruvalcaba MOTH PROOFER Unavailable [phone] Encounters Date Type Department Care Team Description 08/05/2024 Telephone [facility] Sports Medicine [address] [facility] [address] [place] [address] Esa Metzger PA Durolane Auth 08/01/2024 11:30 AM CDT Office Visit [facility] [address] [address] Aida Lance NP Abscess (Primary Dx); Class 3 severe obesity due to excess calories with serious comorbidity and body mass index (BMI) of 50.0 to 59.9 in adult 07/31/2024 Telephone [facility] [address] [address] Kamron Jones MD Appointment Request 07/30/2024 Results Follow-Up [facility] [address] [address] Kamron Jones MD US Breast Right Limited 07/30/2024 9:36 AM CDT - 07/30/2024 11:59 PM CDT Hospital Encounter [address] [place] [address] Breast pain in female Discharge Disposition: Discharge to home or self care 07/30/2024 8:47 AM CDT - 07/30/2024 11:59 PM CDT Hospital Encounter [facility] and Radiology [address] [place] [address] Encounter for screening mammogram for malignant neoplasm of breast; Breast pain in female Discharge Disposition: Discharge to home or self care 07/22/2024 Telephone [facility] Primary Care at [address] [place] [phone] Kamron Jones MD 07/22/2024 Telephone [facility] [address] [place] [phone] Jes Vergara NP 06/24/2024 9:00 AM CDT Office Visit [facility] [address] [place] [phone] Esa Metzger PA Primary osteoarthritis of right knee (Primary Dx); Morbid obesity (HCC) 06/21/2024 8:30 AM CDT Office Visit [facility] [address] [phone] Jes Vergara NP Gastroesophageal reflux disease without esophagitis (Primary Dx); Acute gastric ulcer without hemorrhage or perforation; Class 3 severe obesity due to excess calories with serious comorbidity and body mass index (BMI) of 50.0 to 59.9 in adult; History of sleeve gastrectomy; ANGEL (obstructive sleep apnea); Generalized anxiety disorder 06/05/2024 Telephone [facility] [address] [place] [address] [address] [address] Esa Metzger PA from Last 3 Months Allergies No known active allergies Medications sertraline (ZOLOFT) 100 mg tabletIndication s:Generalized Anxiety Disorder Take 2 tablets (200 mg total) by mouth nightly 180 tablet 1 4 Active busPIRone (BUSPAR) 15 mg tabletIndication s:Generalized anxiety disorder Take 1 tablet (15 mg total) by mouth 3 (three) times a day 4 Active lurasidone (LATUDA) 40 mg tablet Take 1 tablet (40 mg total) by mouth nightly 5 Active sucralfate (CARAFATE) 1 gram tabletIndication s:Gastroesophage al reflux disease without esophagitis,Acut e gastric ulcer without hemorrhage or perforation Take 1 tablet (1 g total) by mouth 4 (four) times a day 120 tablet [address] (PROTONIX) 40 mg EC tabletIndication s:Gastroesophage al reflux disease without esophagitis,Acut e gastric ulcer without hemorrhage or perforation Take 1 tablet (40 mg total) by mouth daily 90 tablet 1 5 Active cephalexin (KEFLEX) 500 mg capsule Take 1 capsule (500 mg total) by mouth 4 (four) times a day for 7 days 28 capsule 5 08/09/19 25 Active Problems Problem Noted Date Diagnosed Date Abscess 08/01/2024 Assessment & Plan (08/01/2024 12:39 PM CDT): Will initiate antibiotic course. Continue monitoring the area. She has follow-up with PCP next week and can re-evaluate at that time. We also reviewed red flags. She is in agreement with plan and states understanding. Gastric ulcer 06/21/2024 Assessment & Plan (06/21/2024 9:09 AM CDT): Suspected due to symptoms. Patient also has a history of a gastric ulcer. Starting sucralfate 1 g q.i.d. x3 months. If no improvement over the next 2 weeks, notify us and we will refer for EGD. Urinary incontinence 03/10/2023 Assessment & Plan (03/10/2023 9:43 AM DITCHER): S/p hysterectomy; occurences of incontinence Referral to PT for pelvic floor therapy Chronic pain of right knee 03/10/2023 Assessment & Plan (03/10/2023 9:45 AM DITCHER): Update xray ordered Discussed ortho referral pending results Gastroesophageal reflux disease without esophagi tis 03/10/2023 Assessment & Plan (06/21/2024 9:08 AM CDT): Patient was continuously taking Nexium 20 mg daily [id number]. Switching to pantoprazole 40 mg daily, plus sucralfate 1 g q.i.d. for the next 3 months since we suspect an ulcer. Assessment & Plan (11/17/2023 9:42 AM CDT): Continue Nexium 20 mg daily History of sleeve gastrectomy 02/01/2022 Assessment & Plan (06/21/2024 9:08 AM CDT): 2021, but it did not work, and [facility] bariatric even questioned if she actually had it done since their studies looked like it was not done. She has gained even more weight since prior to the surgery. Assessment & Plan (05/07/2024 3:30 PM CDT): Not well controlled, patient continues to have weight gain; patient on appropriate diet; regular physical activity Patient reports recent imaging demonstrated stomach appeared more rounded in nature then please Will check for possible other causes weight gain, as well as check for availability for patient to start tirzepatide;; if limited options, will refer to [facility] weight loss clinic Assessment & Plan [...] changes. Assessment & Plan (02/01/2022 1:50 PM DITCHER): Stable, improving, pain is down to 3/10 -doing well with diet; on pureed diet at this time -continues to have weight loss Tobacco use disorder, moderate, in sustained rem ission 06/03/2021 Overview (01/14/2022): Quit date 04/2021 Assessment & Plan (02/01/2022 1:52 PM DITCHER): Quit smoking, doing well Assessment & Plan [...] Generalized anxiety disorder 10/27/2020 Assessment & Plan (06/21/2024 9:09 AM CDT): Patient is extremely stressed and anxious currently. Her lost his job 2 weeks ago. 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 Patient follows with Leni Nguyen, psychiatry specialist, and was switched from [facility] to [facility] recently. She has another appointment call with her coming up. Assessment & Plan (11/17/2023 9:45 AM CDT): Chronic, stable Follows with psychiatry Continue Sertraline 200 mg nightly, BuSpar 15 mg TID and Aripiprazole 20 mg nightly Assessment & Plan (08/11/2023 9:37 AM CDT): Chronic, stable Follows with psychiatry Continue Sertraline 200 mg daily, BuSpar 10 mg TID, Aripiprazole 20 mg daily Assessment & Plan (03/10/2023 9:42 AM DITCHER): Stable, follows with psychiatry Continue Sertraline 200 mg daily, BuSpar 10 mg TID; Aripiprazole 20 mg daily Assessment & Plan (07/15/2022 12:38 PM CDT): Recently increased due to multiple stressors; follows with Psychiatry, has regular talk therapy Continue Abilify 20 mg daily, BuSpar 5 mg b.i.d., sertraline 200 mg daily Assessment & Plan (02/01/2022 1:52 PM DITCHER): Had initially stopped medication due to concerns of constipation; now taking medications to management worsening anxiety -continue abilify 20 mg daily, sertraline 200 mg daily Assessment & Plan (06/03/2021 10:49 AM CDT): Stable, well controlled; patient continues to follow psychiatry for management Continue Abilify 50 mg daily, sertraline 125 mg daily Assessment & Plan (03/31/2021 9:01 AM DITCHER): Stable, falls psychiatry; has good relief symptoms Currently on Abilify 50 mg daily, sertraline 100 mg daily Assessment & Plan (10/27/2020 3:46 PM CDT): Follows with psychiatry for management; on Abilify 15 mg and has sertraline 100 mg daily ANGEL (obstructive sleep apnea) 10/27/2020 Assessment & Plan (06/21/2024 9:07 AM CDT): Patient has not been able to use the CPAP machine since she has had worsened acid reflux the last several weeks. Before this, she was using the CPAP machine nightly. She is currently sleeping sitting up. Assessment & Plan (05/07/2024 3:30 PM CDT): Not well controlled, take CPAP nightly; may benefit from zepbound for treatment Assessment & Plan (07/15/2022 12:38 PM CDT): Stable, generally well controlled with limited daytime sleepiness; has insulin more upright due to postsurgical pain Continue to monitor Assessment & Plan (03/31/2021 9:01 AM DITCHER): Stable, well controlled; patient reports significant improvement in symptoms with uses CPAP machine Patient to continue CPAP machine nightly Assessment & Plan (11/17/2020 8:12 AM CDT): Continue current breathing treatments. Class 3 severe obesity due t o excess calories with serious comorbidity and body mass index (BMI) of 50.0 to 59.9 in adult 09/22/2020 Assessment & Plan (06/21/2024 9:07 AM CDT): Healthy diet encouraged. Following a acid reflux diet is recommended to help decrease symptoms. Getting regular exercise is also recommended. Assessment & Plan (05/07/2024 3:29 PM CDT): [...] for her knee replacement surgery Mounjaro to expensive She has tried Wellbutrin, Phentermine and Diethylpropion [...] surgery Assessment & Plan (03/10/2023 9:44 AM DITCHER): 10 pound weight gain since November Discussed [...] imaging Assessment & Plan (02/08/2022 10:35 AM DITCHER): The patient is okay for activities unrestricted. [...] today Assessment & Plan (03/31/2021 9:00 AM DITCHER): Not well controlled, patient has been working [...] 11/17/2023 Assessment & Plan (02/01/2022 1:51 PM DITCHER): Has been having pain, few episodes of constiaption -continue OTC management; treat constipation with milk of magnesia Heartburn 10/29/2021 11/17/2023 Overview (10/29/2021): Added automatically from request for surgery [id number] Immunizations Immunization Administration Dates Next Due Influenza, Quadrivalent, Radha l Culture-based MDCK, Preservative Free, Antibiotic Free, Intramuscular 11/22/2021 Influenza, Trivalent, Preser vative Free, Intramuscular 11/24/2023 Influenza, Unspecified 11/14/2023,2022(Deferred: Patient Refused),11/13/2022(Deferred: Patient Refused),03/30/2021(Deferred: [...] on file Legal Sex Female 11:44 AM DITCHER Gender Identity Female 02/16/2022 6:33 PM DITCHER Sexual Orientation Straight 02/02/2023 7 :45 AM DITCHER Occupation Industry Job Start Date Job End Date [employer]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 [employer] Not on file Not on file Not on file Last Filed Vital Signs Vital Sign Reading Time Taken Comments Blood Pressure 100/72 08/01/2024 11:37 AM CDT Pulse 72 08/01/2024 11:37 AM CDT Temperature 36.2 C (97.1 F) 08/01/2024 11:37 AM CDT Respiratory Rate 20 08/01/2024 11:3 7 AM CDT Oxygen Saturation 98% 08/01/2024 11: 37 AM CDT Inhaled Oxygen Concentration - - Weight 145.9 kg (321 lb 9.6 oz) 025 11:37 AM CDT Height 162.6 cm (5' 4.02) 08/01/2024 1 1:37 AM CDT Body Mass Index 55.17 08/01/2024 11:37 AM CDT Plan of Treatment Not on file Medical Devices Implanted Type Area Hide Mill Man Device Identifier Shelf Expiration Date Model / Serial / Lot [employer] Mammostar Tissue Barbell Marker Breast Biopsy Beta Glucan Ceramic [id number] - [id number] Implanted:Qty: 1 on 07/27/2022 at [facility] [employer] [id number] 01/10/2027 [id number] / / [id number] Procedures Procedure Name Priority Date/Time Associated Diagnosis Comments US BREAST RIGHT LIMITED Schedule Routine, Read Routine (OP Routine) 07/30/2024 11:40 AM CDT Breast pain in female DIAGNOSTIC MAMMOGRAM BILATERAL W JASSON Schedule Routine, Read Routine (OP Routine) 07/30/2024 9:20 AM CDT Breast pain in female NH ARTHROCENTESIS ASPIR&/INJ MAJOR JT/BURSA W/O US Routine 06/24/2024 9:00 AM CDT Primary osteoarthritis of right knee HEPATITIS C ANTIBODY Routine 05/01/2024 8:51 AM CDT Encounter for hepatitis C screening test for low risk patient from Last 3 Months or Most Recently Relevant to Health Maintenance Results * US Breast Right Limited (07/30/2024 11:40 AM CDT) Anatomical Region Laterality Modality Breast Right Ultrasound 07/30/2024 12:4 2 PM CDT Impressions 07/30/2024 12:42 PM CDT 1. There is a nonspecific hypoechoic skin lesion over the RIGHT breast at part of the area of concern at the 10 o'clock position, 11 cm from the nipple, without suspicious underlying abnormality in the breast tissue in this area or in the remaining surrounding areas of smaller erythematous skin lesions. There is increased vascularity around this largest red skin lesion, suggestive of inflammation or infection. No collection is seen within the underlying RIGHT breast tissue. Recommend appropriate clinical management and clinical follow-up to resolution. 2. No suspicious mammographic abnormality in EITHER breast. OVERALL FINAL ASSESSMENT: BI-RADS Category 2: Benign. RECOMMENDATION: 1. Annual screening mammography is recommended. 2. Clinical follow-up is recommended. Recommend appropriate clinical management and follow-up to resolution for the patient's RIGHT breast symptoms. Dr. Haywood discussed the above findings and recommendations with the patient, who expressed her understanding. Electronically signed by: Candice Haywood M.D. Narrative 07/30/2024 12:42 PM CDT EXAMINATION: BILATERAL DIGITAL DIAGNOSTIC MAMMOGRAM INCLUDING CAD AND BILATERAL DIGITAL BREAST TOMOSYNTHESIS; RIGHT BREAST SONOGRAM HISTORY: 43-year-old woman presenting for annual mammogram, but also with an area of redness of the skin for one week which the patient states she believes is related to her new bra. No associated area of palpable concern. The patient has a history of benign core needle biopsy in the RIGHT breast. COMPARISON: Multiple prior mammograms dating back to 04/28/2021, most recent from 07/31/2023. TECHNIQUE: Full field digital mammographic views of BOTH breasts were performed, including computer aided detection (CAD) and BILATERAL digital breast tomosynthesis (DBT). Directed ultrasound evaluation of the RIGHT breast was performed by a trained sawmill supervisor and by Dr. Haywood. BREAST PARENCHYMAL COMPOSITION: There are scattered areas of fibroglandular density. MAMMOGRAM FINDINGS: Stable appearance of benign biopsy site in the RIGHT breast. No new suspicious grouped calcifications, mass, or architectural distortion suggestive of malignancy is detected in EITHER breast. There is no suspicious abnormality at the area of clinical concern as denoted by a skin marker over the RIGHT breast. SONOGRAM FINDINGS: Targeted ultrasound of the RIGHT breast was performed. At the 10 o'clock position, 11 cm from the nipple at an area of redness of the skin, there is a 1.3 x 0.3 x 0.9 cm hypoechoic lesion within the skin with increased surrounding vascularity. There is no suspicious sonographic abnormality in the underlying breast tissue. There is no suspicious abnormality in the breast at the 10:00 to 10:30 positions, or in the RIGHT axilla and the area of patient's concern. Other smaller erythematous lesions are noted over the RIGHT breast in this region without suspicious underlying sonographic abnormality. us Kamron Jones MD IMG MAMMO PROCEDURES Anahi l Result * Diagnostic Mammogram Bilateral W Jasson (07/30/2024 9:20 AM CDT) Anatomical Region Laterality Modality Breast Bilateral Mammography 07/30/2024 12:4 2 PM CDT Impressions 07/30/2024 12:42 PM CDT 1. There is a nonspecific hypoechoic skin lesion over the RIGHT breast at part of the area of concern at the 10 o'clock position, 11 cm from the nipple, without suspicious underlying abnormality in the breast tissue in this area or in the remaining surrounding areas of smaller erythematous skin lesions. There is increased vascularity around this largest red skin lesion, suggestive of inflammation or infection. No collection is seen within the underlying RIGHT breast tissue. Recommend appropriate clinical management and clinical follow-up to resolution. 2. No suspicious mammographic abnormality in EITHER breast. OVERALL FINAL ASSESSMENT: BI-RADS Category 2: Benign. RECOMMENDATION: 1. Annual screening mammography is recommended. 2. Clinical follow-up is recommended. Recommend appropriate clinical management and follow-up to resolution for the patient's RIGHT breast symptoms. Dr. Haywodo discussed the above findings and recommendations with the patient, who expressed her understanding. Electronically signed by: Candice Haywood M.D. Narrative 07/30/2024 12:42 PM CDT EXAMINATION: BILATERAL DIGITAL DIAGNOSTIC MAMMOGRAM INCLUDING CAD AND BILATERAL DIGITAL BREAST TOMOSYNTHESIS; RIGHT BREAST SONOGRAM HISTORY: 43-year-old woman presenting for annual mammogram, but also with an area of redness of the skin for one week which the patient states she believes is related to her new bra. No associated area of palpable concern. The patient has a history of benign core needle biopsy in the RIGHT breast. COMPARISON: Multiple prior mammograms dating back to 04/28/2021, most recent from 07/31/2023. TECHNIQUE: Full field digital mammographic views of BOTH breasts were performed, including computer aided detection (CAD) and BILATERAL digital breast tomosynthesis (DBT). Directed ultrasound evaluation of the RIGHT breast was performed by a trained sawmill supervisor and by Dr. Haywood. BREAST PARENCHYMAL COMPOSITION: There are scattered areas of fibroglandular density. MAMMOGRAM FINDINGS: Stable appearance of benign biopsy site in the RIGHT breast. No new suspicious grouped calcifications, mass, or architectural distortion suggestive of malignancy is detected in EITHER breast. There is no suspicious abnormality at the area of clinical concern as denoted by a skin marker over the RIGHT breast. SONOGRAM FINDINGS: Targeted ultrasound of the RIGHT breast was performed. At the 10 o'clock position, 11 cm from the nipple at an area of redness of the skin, there is a 1.3 x 0.3 x 0.9 cm hypoechoic lesion within the skin with increased surrounding vascularity. There is no suspicious sonographic abnormality in the underlying breast tissue. There is no suspicious abnormality in the breast at the 10:00 to 10:30 positions, or in the RIGHT axilla and the area of patient's concern. Other smaller erythematous lesions are noted over the RIGHT breast in this region without suspicious underlying sonographic abnormality. us Kamron Jones MD IMG MAMMO PROCEDURES Anahi l Result * [place] ARTHROCENTESIS ASPIR&/INJ MAJOR JT/BURSA W/O US (06/24/2024 9:00 AM CDT) Narrative Esa Metzger PA - 06/24/2024 9:00 AM CDT Esa Metzger PA 06/24/2024 10:11 AM Large Joint (Hip, Knee, Shoulder) Injection: R [...] the procedure well with no immediate complications Result [facility] Esa CALLEJAS IN CLINIC/BEDSIDE DENZEL DIAS Final Result * Hepatitis C antibody Blood (05/01/2024 8:51 [...] last revised on 2019. Testing performed by: [facility], [address] [place] [address]., [id number] Blood 05/01/2024 8:51 AM CDT 05/01/2024 12:27 PM CDT Kamron Jones MD LAB MICROBIOLOGY - GENERA L ORDERABLES Final Result [facility] ([facility] Department [place] [address] from Last 3 Months or Most Recently Relevant to Health Maintenance Insurance [facility]/PPO Address: [address] [address] [place] [address] [facility]PP[facility] Address: [address] [address] [place] [address] Advance Directives For more information, please contact: [phone] Documents on File Type Date Recorded Patient Firmware Developer Expl anation ADVANCE DIRECTIVE 10/28/2022 8:02 AM Power of Consulting Analyst-Medical * Full Code (Latest Code Status on File) Date Activated Date Inactivated Comments 12/29/2021 10:51 AM 01/04/2022 1:53 PM * Full Code Date Activated Date Inactivated Comments 11/02/2021 12:32 PM 11/02/2021 7:38 PM * Full Code Date Activated Date Inactivated Comments 11/02/2021 12:31 PM 11/02/2021 12:32 PM Care Teams Nurse Orthopaedic Relationship Specialty Start Date End Date Kamron Jones MD [address] [place] [address] PCP - General 10/31/21 Kamron Jones MD [address] [place] [address] Family Medicine 10/31/21 Leni Ruvalcaba, RAGINI [address] [place] [address] [place] [address] Nurse Practitioner Psychiatry 06/21/24
--- OUTSIDE RECORDS SUMMARY | 2024-08-18 22:10 | XMS_ITS | Clinical Summary ---
Author Organization [facility] Address [address] [place] [address] Care Team Providers Care Rn Lactation Name Role Phone Kamron Jones MD Primary Care Provider [phone] Kamron Jones MD Unavailable [phone] Leni Ruvalcaba NP Unavailable [phone] Allergies No known active allergies Medications sertraline [...] 03/10/2023 Assessment & Plan (03/10/2023 9:43 AM ANIMAL NUTRITIONIST): S/p hysterectomy; occurences of incontinence Referral to PT for pelvic floor therapy Chronic pain of right knee 03/10/2023 Assessment & Plan (03/10/2023 9:45 AM ANIMAL NUTRITIONIST): Update xray ordered Discussed ortho referral pending results Gastroesophageal reflux disease without esophagi tis 03/10/2023 Assessment & Plan (06/21/2024 9:08 AM CDT): Patient was continuously taking Nexium 20 mg daily [id number]. Switching to pantoprazole 40 mg daily, plus sucralfate 1 g q.i.d. for the next 3 months since we suspect an ulcer. Assessment & Plan (11/17/2023 9:42 AM CDT): Continue Nexium 20 mg daily History of sleeve gastrectomy 02/01/2022 Assessment & Plan (06/21/2024 9:08 AM CDT): 2021, but it did not work, and [facility] even questioned if she actually had [...] tirzepatide;; if limited options, will refer to [facility] weight loss clinic Assessment & Plan [...] changes. Assessment & Plan (02/01/2022 1:50 PM ANIMAL NUTRITIONIST): Stable, improving, pain is down to 3/10 -doing well with diet; on pureed diet at this time -continues to have weight loss Tobacco use disorder, moderate, in sustained rem ission 06/03/2021 Overview (01/14/2022): Quit date 04/2021 Assessment & Plan (02/01/2022 1:52 PM ANIMAL NUTRITIONIST): Quit smoking, doing well Assessment & Plan [...] 2 weeks ago. 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 Patient follows with Leni Nguyen, psychiatry specialist, and was switched from Abilify to Latuda recently. She has another appointment call with [...] daily Assessment & Plan (03/10/2023 9:42 AM ANIMAL NUTRITIONIST): Stable, follows with psychiatry Continue Sertraline 200 mg daily, BuSpar 10 mg TID; Aripiprazole 20 mg daily Assessment & Plan (07/15/2022 12:38 PM CDT): Recently increased due to multiple stressors; follows with Psychiatry, has regular talk therapy Continue Abilify 20 mg daily, BuSpar 5 mg b.i.d., sertraline 200 mg daily Assessment & Plan (02/01/2022 1:52 PM ANIMAL NUTRITIONIST): Had initially stopped medication due to concerns of constipation; now taking medications to management worsening anxiety -continue abilify 20 mg daily, sertraline 200 mg daily Assessment & Plan (06/03/2021 10:49 AM CDT): Stable, well controlled; patient continues to follow psychiatry for management Continue Abilify 50 mg daily, sertraline 125 mg daily Assessment & Plan (03/31/2021 9:01 AM ANIMAL NUTRITIONIST): Stable, falls psychiatry; has good relief symptoms [...] monitor Assessment & Plan (03/31/2021 9:01 AM ANIMAL NUTRITIONIST): Stable, well controlled; patient reports significant improvement [...] surgery Assessment & Plan (03/10/2023 9:44 AM ANIMAL NUTRITIONIST): 10 pound weight gain since November Discussed [...] imaging Assessment & Plan (02/08/2022 10:35 AM ANIMAL NUTRITIONIST): The patient is okay for activities unrestricted. [...] today Assessment & Plan (03/31/2021 9:00 AM ANIMAL NUTRITIONIST): Not well controlled, patient has been working with on weight loss, but has limited success -no interestedin weight loss surgery due to concerns of complications -Will prescribe Liraglutide for weight loss; patient referred in office to manage [facility] counseling for weight loss Assessment [...] 11/17/2023 Assessment & Plan (02/01/2022 1:51 PM ANIMAL NUTRITIONIST): Has been having pain, few episodes of constiaption -continue OTC management; treat constipation with milk of magnesia Heartburn 10/29/2021 11/17/2023 Overview (10/29/2021): Added automatically from request for surgery [id number] Encounters Date Type Department Care Team Description 08/05/2024 Telephone [facility] Orthopedics and Sports Medicine [address] [facility] [address] [place] [address] Esa Metzger PA Durolane Auth 08/01/2024 11:30 AM CDT Office Visit [facility] [address] [phone] Aida Lance NP Abscess (Primary Dx); Class 3 severe obesity due to excess calories with serious comorbidity and body mass index (BMI) of 50.0 to 59.9 in adult 07/31/2024 Telephone [facility] [address] [address] Kamron Jones MD Appointment Request 07/30/2024 9:36 AM CDT - 07/30/2024 11:59 PM CDT Hospital Encounter [facility] ` [address] [place] [address] Breast pain in female Discharge Disposition: Discharge to home or self care 07/30/2024 8:47 AM CDT - 07/30/2024 11:59 PM CDT Hospital Encounter [facility] Imaging and Radiology [address] [place] [address] Encounter for screening mammogram for malignant neoplasm of breast; Breast pain in female Discharge Disposition: Discharge to home or self care 07/30/2024 Results Follow-Up [facility] [address] [phone] Kamron Jones MD US Breast Right Limited 07/22/2024 Telephone [facility] Primary Care at [address] [place] [address] Kamron Jones MD 07/22/2024 Telephone [facility] Primary Care at [address] [place] [address] Jes Vergara NP 06/24/2024 9:00 AM CDT Office Visit [facility] Orthopedics and Sports Medicine [address] [place] [address] [address] [place] [address] Esa Metzger PA Primary osteoarthritis of right knee (Primary Dx); Morbid obesity (HCC) 06/21/2024 8:30 AM CDT Office Visit [facility] Primary Care at [address] [place] [address] Jes Vergara NP Gastroesophageal reflux disease without esophagitis (Primary Dx); Acute gastric ulcer without hemorrhage or perforation; Class 3 severe obesity due to excess calories with serious comorbidity and body mass index (BMI) of 50.0 to 59.9 in adult; History of sleeve gastrectomy; ANGEL (obstructive sleep apnea); Generalized anxiety disorder 06/05/2024 Telephone [facility] Orthopedics and Sports Medicine [address] [facility] [address], [place] [address] Esa Metzger PA from Last 3 Months Immunizations Immunization Administration [...] Depression Mother Hypertension Mother Cancer Mother's Sister Breast cancer Sister Anesthesia problems Neg Hx Relation Name Status Comments Brother 1 Alive Brother 2 Alive Father Maternal Grandmother Mother Alive Mother's Sister Alive Sister Social History Tobacco Use Types Packs/Day Years [...] on file Legal Sex Female 11:44 AM ANIMAL NUTRITIONIST Gender Identity Female 02/16/2022 6:33 PM ANIMAL NUTRITIONIST Sexual Orientation Straight 02/02/2023 7: 45 AM ANIMAL NUTRITIONIST Occupation Industry 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 [employer] Not on file Not on file Not [...] 08/01/2024 11:37 AM CDT Plan of Treatment Health Maintenance Due Date Last Done Comments Regular Well Visit/Exam 18-64 1998 Influenza Vaccine (#1) 2024 , 11/14/2023, 11/22/2021 Depression Screening 06/21/2025 06/21/2024, 06/21/2024, 11/17/2023, Additional history exists Breast Cancer Screening-Mammogram 07/30/2025 07/30/2024, 07/31/2023, 06/04/2022, Additional history exists DTaP/Tdap/Td Vaccine (2 - Td or Tdap) 03/10/2033 03/10/2023 Covid-19 Vaccine Discontinued 03/01/2022, 11/2021, 10/21/2021 Hepatitis B Screening Completed 05/01/2024 Hepatitis C Screening Completed 05/01/2024 HPV Vaccines Aged Out No longer eligi ble based on patient's age to complete this topic Pneumococcal vaccine <65 Aged Out No longer eligible based on patient's age to complete this topic Medical Devices Implanted Type Area Cable Worker Helper Device Identifier Shelf Expiration Date Model / Serial / Lot Surface Tension Mammostar Tissue Barbell Marker Breast Biopsy Beta Glucan Ceramic [id number] - [id number] Implanted:Qty: 1 on 07/27/2022 at [facility] Surface Tension [id number] 01/10/2027 [id number] / / [id number] Procedures Procedure Name Priority Date/Time Associated Diagnosis Comments US BREAST RIGHT LIMITED Schedule Routine, Read Routine (OP Routine) 07/30/2024 11:40 AM CDT Breast pain in female DIAGNOSTIC MAMMOGRAM BILATERAL W JASSON Schedule Routine, Read Routine (OP Routine) 07/30/2024 9:20 AM CDT Breast pain in female [place] ARTHROCENTESIS ASPIR&/INJ MAJOR JT/BURSA W/O US Routine [...] RIGHT breast was performed by a trained microarray specialist and by Dr. Haywood. BREAST PARENCHYMAL COMPOSITION: [...] RIGHT breast was performed by a trained microarray specialist and by Dr. Haywood. BREAST PARENCHYMAL COMPOSITION: [...] IMG MAMMO PROCEDURES Anahi l Result * [place] ARTHROCENTESIS ASPIR&/INJ MAJOR JT/BURSA W/O US (06/24/2024 [...] procedure well with no immediate complications Result [facility] Esa CALLEJAS IN CLINIC/BEDSIDE DENZEL DIAS Final [...] 2019. Testing performed by: [facility], [address] [place] [address], [place]., [address] Blood 05/01/2024 8:51 AM CDT 05/01/2024 12:27 PM CDT Result [facility] Kamron Jones MD LAB MICROBIOLOGY - GENERA L ORDERABLES Final Result [facility] [address] [facility] Department [place] [address] from Last 3 Months or Most Recently Relevant to Health Maintenance Insurance [facility] CHO[facility] PLUS [facility] H[facility]/PPO Address: [address] [address] [place] [address] UMR [facility]/PPO Address: [address] [address] [place] [address] Advance Directives For more information, please contact: [phone] Documents on File Type Date Recorded Patient Restaurant Line Server Expl anation ADVANCE DIRECTIVE 10/28/2022 8:02 AM Power of Real Estate Appraiser Supervisor-Medical * Full Code (Latest Code Status on File) Date Activated Date Inactivated Comments 12/29/2021 10:51 AM 01/04/2022 1:53 PM * Full Code Date Activated Date Inactivated Comments 11/02/2021 12:32 PM 11/02/2021 7:38 PM * Full Code Date Activated Date Inactivated Comments 11/02/2021 12:31 PM 11/02/2021 12:32 PM Care Teams Rn Lactation Relationship Specialty Start Date End Date Kamron Jones MD [address] [place] [address] PCP - General 10/31/21 Kamron Jones MD [address] [place] [address] Family Medicine 10/31/21 Leni Ruvalcaba, RAGINI [address] [place] [address] [place] [address] Nurse Practitioner Psychiatry 06/21/24
--- OUTSIDE RECORDS SUMMARY | 2024-08-18 22:10 | XMS_ITS | Clinical Summary ---
Author Organization [facility] Address [address] [place] [address] Phone Care Team Providers Care Marine Fisheries Technician Name Role Phone Kamron Jones MD Primary Care Provider [phone] Allergies No known active allergies Medications norethindrone-e [...] 10:20 AM CDT Height 165.1 cm (5' 5) 08/01/2017 10:20 AM CDT Body Mass Index 41.6 08/01/2017 10:20 AM CDT Plan of Treatment Health Maintenance Due Date Last Done Comments Hepatitis C Virus (HCV) Screening 1980 TdaP Immunization 1980 Human Papillomavirus (HPV) Immunization (1 - 3-dose series) 10/10/1995 Hepatitis B Immunization (1 of 3 - 19+ 3-dose series) 10/10/1999 Pap Smear 2001 Cervical Cancer Screening (CCS) 2010 HPV/Cotest 2010 Mammogram 06/05/2023 06/04/2022, 04/28/2021 SARS-COV-2 Immunization ( season) 2023 03/01/2022, 11/22/2021, 10/21/2021 Influenza Immunization (Seas on Ended) 2024 11/22/2021 Respiratory Syncytial Virus (RSV) Immunization (Adult) (1 [...] patient's age to complete this topic Insurance [facility] Care Teams Marine Fisheries Technician Relationship Specialty Start Date End Date Kamron Jones MD [address] [place] [address] PCP - General Family Medicine 10/28/21
--- OUTSIDE RECORDS SUMMARY | 2024-08-18 22:45 | XMS_ITS | Encounter Summary ---
Author Organization [facility] Address [address] [place] [address] Care Team Providers Care Substation Operator Automatic Name Role Phone Kamron Jones MD Primary Care Provider [phone] Kamron Jones MD Unavailable [phone] Leni Ruvalcaba NP Unavailable [phone] Reason for Visit * Reason Onset Date Comments Appointment Request 07/31/2024 Encounter Details Date Type Department Care Team (Late st Contact Info) Description 07/31/2024 Telephone [facility] [address] [facility] [place] [address] Kamron Jones MD [address] [place] [address] Appointment Request Social History Tobacco Use Types [...] on file Legal Sex Female 11:44 AM AIRPORT DUTY MANAGER Gender Identity Female 02/16/2022 6:33 PM AIRPORT DUTY MANAGER Sexual Orientation Straight 02/02/2023 7: 45 AM AIRPORT DUTY MANAGER 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 * Telephone Encounter - Essie Bhatt - [...] care team offered (e.g., nurse practioner(s), physician healthcare administrative assistant(s)) ? Yes Additional Comments: Call back needed please. Does message need to be routed? Yes-Action Needed documented in this encounter Plan of Treatment Not on file documented as of this encounter Visit Diagnoses Not on filedocumented in this encounter Care Teams Substation Operator Automatic Relationship Specialty Start Date End Date Kamron Jones MD [address] [place] [address] PCP - General 10/31/21 Kamron Jones MD [address] [place] [address] Family Medicine 10/31/21 Leni Ruvalcaba NP [address] [place] [address] [place] [address] Nurse Practitioner Psychiatry 06/21/24 documented as of this encounter
--- OUTSIDE RECORDS SUMMARY | 2024-08-18 22:45 | XMS_ITS | Clinical Summary ---
Author Organization [facility] Address [address] [place] [address] Care Team Providers Care Shank Paperer Name Role Phone Kamron Jones MD Primary Care Provider [phone] Kamron Jones MD Unavailable [phone] Leni Ruvalcaba NP Unavailable Allergies No known active allergies Medications sertraline [...] 03/10/2023 Assessment & Plan (03/10/2023 9:43 AM FIRST AID DIRECTOR): S/p hysterectomy; occurences of incontinence Referral to PT for pelvic floor therapy Chronic pain of right knee 03/10/2023 Assessment & Plan (03/10/2023 9:45 AM FIRST AID DIRECTOR): Update xray ordered Discussed ortho referral pending results Gastroesophageal reflux disease without esophagi tis 03/10/2023 Assessment & Plan (06/21/2024 9:08 AM CDT): Patient was continuously taking Nexium 20 mg daily [id number]. Switching to pantoprazole 40 mg daily, plus [...] tirzepatide;; if limited options, will refer to [facility] weight loss clinic Assessment & Plan (05/10/2022 [...] changes. Assessment & Plan (02/01/2022 1:50 PM FIRST AID DIRECTOR): Stable, improving, pain is down to 3/10 -doing well with diet; on pureed diet at this time -continues to have weight loss Tobacco use disorder, moderate, in sustained rem ission 06/03/2021 Overview (01/14/2022): Quit date 04/2021 Assessment & Plan (02/01/2022 1:52 PM FIRST AID DIRECTOR): Quit smoking, doing well Assessment & Plan [...] 2 weeks ago. 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, and she is [...] daily Assessment & Plan (03/10/2023 9:42 AM FIRST AID DIRECTOR): Stable, follows with psychiatry Continue Sertraline 200 mg daily, BuSpar 10 mg TID; Aripiprazole 20 mg daily Assessment & Plan (07/15/2022 12:38 PM CDT): Recently increased due to multiple stressors; follows with Psychiatry, has regular talk therapy Continue Abilify 20 mg daily, BuSpar 5 mg b.i.d., sertraline 200 mg daily Assessment & Plan (02/01/2022 1:52 PM FIRST AID DIRECTOR): Had initially stopped medication due to concerns of constipation; now taking medications to management worsening anxiety -continue abilify 20 mg daily, sertraline 200 mg daily Assessment & Plan (06/03/2021 10:49 AM CDT): Stable, well controlled; patient continues to follow psychiatry for management Continue Abilify 50 mg daily, sertraline 125 mg daily Assessment & Plan (03/31/2021 9:01 AM FIRST AID DIRECTOR): Stable, falls psychiatry; has good relief symptoms [...] monitor Assessment & Plan (03/31/2021 9:01 AM FIRST AID DIRECTOR): Stable, well controlled; patient reports significant improvement [...] surgery Assessment & Plan (03/10/2023 9:44 AM FIRST AID DIRECTOR): 10 pound weight gain since November Discussed [...] imaging Assessment & Plan (02/08/2022 10:35 AM FIRST AID DIRECTOR): The patient is okay for activities unrestricted. [...] today Assessment & Plan (03/31/2021 9:00 AM FIRST AID DIRECTOR): Not well controlled, patient has been working [...] 11/17/2023 Assessment & Plan (02/01/2022 1:51 PM FIRST AID DIRECTOR): Has been having pain, few episodes of constiaption -continue OTC management; treat constipation with milk of magnesia Heartburn 10/29/2021 11/17/2023 Overview (10/29/2021): Added automatically from request for surgery [id number] Encounters Date Type Department Care Team Description 08/05/2024 Telephone [facility] Group Orthopedics and Sports Medicine [address] [facility] [address] [place] [address] Esa Metzger PA Durolane Auth 08/01/2024 11:30 AM CDT Office Visit [facility] [address] [phone] Aida Lance NP Abscess (Primary Dx); Class 3 severe obesity due to excess calories with serious comorbidity and body mass index (BMI) of 50.0 to 59.9 in adult 07/31/2024 Telephone [facility] [address] [address] Kamron Jones MD Appointment Request 07/30/2024 9:36 AM CDT - 07/30/2024 11:59 PM CDT Hospital Encounter [facility] ` [address] [place] [address] Breast pain in female Discharge Disposition: Discharge to home or self care 07/30/2024 8:47 AM CDT - 07/30/2024 11:59 PM CDT Hospital Encounter [facility] Imaging and Radiology [address] [place] [address] Encounter for screening mammogram for malignant neoplasm of breast; Breast pain in female Discharge Disposition: Discharge to home or self care 07/30/2024 Results Follow-Up [facility] [address] [phone] Kamron Jones MD US Breast Right Limited 07/22/2024 Telephone [facility] Primary Care at [address] [place] [address] Kamron Jones MD 07/22/2024 Telephone [facility] Primary Care at [address] [place] [address] Jes Vergara NP 06/24/2024 9:00 AM CDT Office Visit [facility] Orthopedics and Sports Medicine [address] [place] [address] [address] [place] [address] Esa Metzger PA Primary osteoarthritis of right knee (Primary Dx); Morbid obesity (HCC) 06/21/2024 8:30 AM CDT Office Visit [facility] Primary Care at [address] [place] [address] Jes Vergara NP Gastroesophageal reflux disease without esophagitis (Primary Dx); Acute gastric ulcer without hemorrhage or perforation; Class 3 severe obesity due to excess calories with serious comorbidity and body mass index (BMI) of 50.0 to 59.9 in adult; History of sleeve gastrectomy; ANGEL (obstructive sleep apnea); Generalized anxiety disorder 06/05/2024 Telephone [facility] Orthopedics and Sports Medicine [address] [facility] [address], [place] [address] Esa Metzger PA from Last [...] on file Legal Sex Female 11:44 AM FIRST AID DIRECTOR Gender Identity Female 02/16/2022 6:33 PM FIRST AID DIRECTOR Sexual Orientation Straight 02/02/2023 7: 45 AM FIRST AID DIRECTOR Occupation Industry Job 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 Date 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 [employer] Not on file Not on file Not [...] this topic Medical Devices Implanted Type Area Pasteurizer Device Identifier Shelf Expiration Date Model / Serial / Lot [employer] Mammostar Tissue Barbell Marker Breast Biopsy Beta Glucan Ceramic [id number] - [id number] Implanted:Qty: 1 on 07/27/2022 at [facility] [employer] [id number] 01/10/2027 [id number] / / [id number] Procedures Procedure Name Priority Date/Time Associated Diagnosis Comments US BREAST RIGHT LIMITED Schedule Routine, Read Routine (OP Routine) 07/30/2024 11:40 AM CDT Breast pain in female DIAGNOSTIC MAMMOGRAM BILATERAL W JASSON Schedule Routine, Read Routine (OP Routine) 07/30/2024 9:20 AM CDT Breast pain in female OR ARTHROCENTESIS ASPIR&/INJ MAJOR JT/BURSA W/O US Routine [...] RIGHT breast was performed by a trained brokerage clerk and by Dr. Haywood. BREAST PARENCHYMAL COMPOSITION: [...] RIGHT breast was performed by a trained brokerage clerk and by Dr. Haywood. BREAST PARENCHYMAL COMPOSITION: [...] IMG MAMMO PROCEDURES Anahi l Result * OR ARTHROCENTESIS ASPIR&/INJ MAJOR JT/BURSA W/O US (06/24/2024 [...] procedure well with no immediate complications Result [facility] Esa CALLEJAS IN CLINIC/BEDSIDE DENZEL DIAS [...] last revised on 2019. Testing performed by: [facility], [address] [place] [address], [place]., [address] Blood 05/01/2024 8:51 AM CDT 05/01/2024 12:27 PM CDT Result [facility] Kamrno Jones MD LAB MICROBIOLOGY - GENERA L ORDERABLES Final Result [facility] [address] [facility] Department [place] [address] from Last 3 Months or Most Recently Relevant to Health Maintenance Insurance [facility] CHOICE PLUS [facility] Advance Directives For more information, please contact: [phone] Documents on File Type Date Recorded Patient Principal Java Developer Expl anation ADVANCE DIRECTIVE 10/28/2022 8:02 AM Power of Last Remodeler Repairer-Medical * Full Code (Latest Code Status on File) Date Activated Date Inactivated Comments 12/29/2021 10:51 AM 01/04/2022 1:53 PM * Full Code Date Activated Date Inactivated Comments 11/02/2021 12:32 PM 11/02/2021 7:38 PM * Full Code Date Activated Date Inactivated Comments 11/02/2021 12:31 PM 11/02/2021 12:32 PM Care Teams Shank Paperer Relationship Specialty Start Date End Date Kamron Jones MD [address] [place] [address] PCP - General 10/31/21 Kamron Jones MD [address] [place] [address] Family Medicine 10/31/21 Leni Ruvalcaba, RAGINI [address] [place] [address] [place] [address] Nurse Practitioner Psychiatry 06/21/24
--- OUTSIDE RECORDS SUMMARY | 2024-08-18 22:45 | XMS_ITS | Referral Summary ---
Author Organization [facility] Address [address] [place] [address] Care Team Providers Care Hairpiece Stylist Name Role Phone Kamron Jones MD Primary Care Provider [phone] Kamron Jones MD Unavailable [phone] Leni Ruvalcaba JUKEBOX COIN COLLECTOR Unavailable [phone] Encounters Date Type Department Care Team Description 08/05/[address] [facility] Medicine [address] [place] [address] Esa Metzger PA Durolane Auth 08/01/2024 11:30 AM CDT Office Visit [facility] [address] [address] Aida Lance NP Abscess (Primary Dx); Class 3 severe obesity due to excess calories with serious comorbidity and body mass index (BMI) of 50.0 to 59.9 in adult 07/31/2024 Telephone [facility] [address] [address] Kamron Jones MD Appointment Request 07/30/2024 Results Follow-Up [facility] [address] [address] Kamron Jones MD US Breast Right Limited 07/30/2024 9:36 AM CDT - 07/30/2024 11:59 PM CDT Hospital Encounter [address] [place] [address] Breast pain in female Discharge Disposition: Discharge to home or self care 07/30/2024 8:47 AM CDT - 07/30/2024 11:59 PM CDT Hospital Encounter [facility] [address] [place] [address] Encounter for screening mammogram for malignant neoplasm of breast; Breast pain in female Discharge Disposition: Discharge to home or self care 07/22/[address] [facility] Primary Care at [address] [place] [phone] Kamron Jones MD 07/22/2024 Telephone [facility] at [address] [place] [phone] Jes Vergara NP 06/24/2024 9:00 AM CDT Office Visit [facility] Sports Medicine [address] [place] [phone] Esa Metzger PA Primary osteoarthritis of right knee (Primary Dx); Morbid obesity (HCC) 06/21/2024 8:30 AM CDT Office Visit [facility] at [address] [phone] Jes Vergara NP Gastroesophageal reflux disease without esophagitis (Primary Dx); Acute gastric ulcer without hemorrhage or perforation; Class 3 severe obesity due to excess calories with serious comorbidity and body mass index (BMI) of 50.0 to 59.9 in adult; History of sleeve gastrectomy; ANGEL (obstructive sleep apnea); Generalized anxiety disorder 06/05/2024 Telephone [facility] [address] [place] [address] [address], [place] [address] Esa Metzger PA from Last [...] 03/10/2023 Assessment & Plan (03/10/2023 9:43 AM TEMPERER): S/p hysterectomy; occurences of incontinence Referral to PT for pelvic floor therapy Chronic pain of right knee 03/10/2023 Assessment & Plan (03/10/2023 9:45 AM TEMPERER): Update xray ordered Discussed ortho referral pending results Gastroesophageal reflux disease without esophagi tis 03/10/2023 Assessment & Plan (06/21/2024 9:08 AM CDT): Patient was continuously taking Nexium 20 mg daily [id number]. Switching to pantoprazole 40 mg daily, plus sucralfate 1 g q.i.d. for the next 3 months since we suspect an ulcer. Assessment & Plan (11/17/2023 9:42 AM CDT): Continue Nexium 20 mg daily History of sleeve gastrectomy 02/01/2022 Assessment & Plan (06/21/2024 9:08 AM CDT): 2021, but it did not work, and [facility] bariatric even questioned if she actually [...] tirzepatide;; if limited options, will refer to [facility] weight loss clinic Assessment & Plan [...] changes. Assessment & Plan (02/01/2022 1:50 PM TEMPERER): Stable, improving, pain is down to 3/10 -doing well with diet; on pureed diet at this time -continues to have weight loss Tobacco use disorder, moderate, in sustained rem ission 06/03/2021 Overview (01/14/2022): Quit date 04/2021 Assessment & Plan (02/01/2022 1:52 PM TEMPERER): Quit smoking, doing well Assessment & Plan [...] 2 weeks ago. 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 Patient follows with Leni Nguyen, psychiatry specialist, and was switched from [facility] to [facility] recently. She has another appointment [...] daily Assessment & Plan (03/10/2023 9:42 AM TEMPERER): Stable, follows with psychiatry Continue Sertraline 200 mg daily, BuSpar 10 mg TID; Aripiprazole 20 mg daily Assessment & Plan (07/15/2022 12:38 PM CDT): Recently increased due to multiple stressors; follows with Psychiatry, has regular talk therapy Continue Abilify 20 mg daily, BuSpar 5 mg b.i.d., sertraline 200 mg daily Assessment & Plan (02/01/2022 1:52 PM TEMPERER): Had initially stopped medication due to concerns of constipation; now taking medications to management worsening anxiety -continue abilify 20 mg daily, sertraline 200 mg daily Assessment & Plan (06/03/2021 10:49 AM CDT): Stable, well controlled; patient continues to follow psychiatry for management Continue Abilify 50 mg daily, sertraline 125 mg daily Assessment & Plan (03/31/2021 9:01 AM TEMPERER): Stable, falls psychiatry; has good relief symptoms [...] monitor Assessment & Plan (03/31/2021 9:01 AM TEMPERER): Stable, well controlled; patient reports significant improvement [...] surgery Assessment & Plan (03/10/2023 9:44 AM TEMPERER): 10 pound weight gain since November Discussed [...] imaging Assessment & Plan (02/08/2022 10:35 AM TEMPERER): The patient is okay for activities unrestricted. [...] today Assessment & Plan (03/31/2021 9:00 AM TEMPERER): Not well controlled, patient has been working [...] 11/17/2023 Assessment & Plan (02/01/2022 1:51 PM TEMPERER): Has been having pain, few episodes of constiaption -continue OTC management; treat constipation with milk of magnesia Heartburn 10/29/2021 11/17/2023 Overview (10/29/2021): Added automatically from request for surgery [id number] Immunizations Immunization Administration Dates Next Due Influenza, [...] on file Legal Sex Female 11:44 AM TEMPERER Gender Identity Female 02/16/2022 6:33 PM TEMPERER Sexual Orientation Straight 02/02/2023 7 :45 AM TEMPERER Occupation Industry Job Start Date Job End Date [place]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 [employer] Not on file Not on file Not [...] on file Medical Devices Implanted Type Area Campus Manager Device Identifier Shelf Expiration Date Model / Serial / Lot Sift Mammostar Tissue Barbell Marker Breast Biopsy Beta Glucan Ceramic [id number] - [id number] Implanted:Qty: 1 on 07/27/2022 at [facility] Sift [id number] 01/10/2027 [id number] / / [id number] Procedures Procedure Name Priority Date/Time Associated Diagnosis Comments US BREAST RIGHT LIMITED Schedule Routine, Read Routine (OP Routine) 07/30/2024 11:40 AM CDT Breast pain in female DIAGNOSTIC MAMMOGRAM BILATERAL W JASSON Schedule Routine, Read Routine (OP Routine) 07/30/2024 9:20 AM CDT Breast pain in female SD ARTHROCENTESIS ASPIR&/INJ MAJOR JT/BURSA W/O US Routine [...] RIGHT breast was performed by a trained hydrography teacher and by Dr. Haywood. BREAST PARENCHYMAL COMPOSITION: [...] RIGHT breast was performed by a trained hydrography teacher and by Dr. Haywood. BREAST PARENCHYMAL COMPOSITION: [...] IMG MAMMO PROCEDURES Anahi l Result * SD ARTHROCENTESIS ASPIR&/INJ MAJOR JT/BURSA W/O US (06/24/2024 [...] procedure well with no immediate complications Result [facility] Esa CALLEJAS IN CLINIC/BEDSIDE DENZEL DIAS [...] Testing performed by: [facility], [address] [place] [address]., [id number] Blood 05/01/2024 8:51 AM CDT 05/01/2024 12:27 PM CDT Kamron Jones MD LAB MICROBIOLOGY - GENERA L ORDERABLES Final Result [facility] ([facility] Department [place] [address] from Last 3 Months or Most Recently Relevant to Health Maintenance Insurance [facility] Advance Directives For more information, please contact: [phone] Documents on File Type Date Recorded Patient Office Support Specialist Expl anation ADVANCE DIRECTIVE 10/28/2022 8:02 AM Power of Photo Retoucher-Medical * Full Code (Latest Code Status on File) Date Activated Date Inactivated Comments 12/29/2021 10:51 AM 01/04/2022 1:53 PM * Full Code Date Activated Date Inactivated Comments 11/02/2021 12:32 PM 11/02/2021 7:38 PM * Full Code Date Activated Date Inactivated Comments 11/02/2021 12:31 PM 11/02/2021 12:32 PM Care Teams Hairpiece Stylist Relationship Specialty Start Date End Date Kamron Jones MD [address] [place] [address] PCP - General 10/31/21 Kamron Jones MD [address] [place] [address] Family Medicine 10/31/21 Leni Ruvalcaba, RAGINI [address] [place] [address] [place] [address] Nurse Practitioner Psychiatry 06/21/24
--- OUTSIDE RECORDS SUMMARY | 2024-08-18 22:45 | XMS_ITS | Clinical Summary ---
Author Organization [facility] Address [address] [place] [address] Phone Care Team Providers Care Process Helper Name Role Phone Kamron Jones MD Primary Care Provider [phone] Allergies No known active allergies Medications norethindrone-e [...] patient's age to complete this topic Insurance [facility] Care Teams Process Helper Relationship Specialty Start Date End Date Kamron Jones MD [address] [place] [address] PCP - General Family Medicine 10/28/21
--- OUTSIDE RECORDS SUMMARY | 2024-08-18 22:45 | XMS_ITS | Encounter Summary ---
Author Organization [facility] Address [address] [place] [address] Care Team Providers Care Angle Furnaceman Name Role Phone Kamron Jones MD Primary Care Provider [phone] Kamron Jones MD Unavailable [phone] Leni Ruvalcaba REFRACTORY MIXER Unavailable [phone] Encounter Details Date Type Department Care Team (Late st Contact Info) Description 07/30/2024 Results [facility] [address] [address] Kamron Jones MD [address] [place] [address] US Breast Right Limited Social History Tobacco [...] on file Legal Sex Female 11:44 AM INTERIOR DESIGNER Gender Identity Female 02/16/2022 6:33 PM INTERIOR DESIGNER Sexual Orientation Straight 02/02/2023 7: 45 AM INTERIOR DESIGNER 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
--- NOTE | 2024-08-19 00:35 | ED_ITS ---
HPI - Extremity Injury (Lower) General Chief Complaint: Extremity Injury, Lower Stated Complaint: knee pain Time Seen by Provider: 08/18/24 22:27 History of Present Illness HPI Narrative: Patient was walking understand was broke and she fell and landed on her right knee, she was able to ambulate afterwards however she had been drinking alcohol and this morning noticed that her knee was quite swollen it did hurt to walk on it. She does have some abrasions also to her knee and ankle, she already washed it off and her tetanus is up-to-date. Related Data Home Medications ?Medication ?Instructions ?Recorded ?Confirmed ?Last Taken ?Type aripiprazole 15 mg tablet 15 mg PO DAILY 07/25/20 06/16/24 Unknown History sertraline 100 mg tablet 100 mg PO DAILY 07/25/20 06/16/24 Unknown History esomeprazole magnesium 20 mg mg 06/16/24 Unknown History capsule,delayed release Allergies Allergy/AdvReac Type Severity Reaction Status Date / Time No Known Allergies Allergy Verified 08/18/24 22:13 Review of Systems Review of Systems: All systems reviewed & are unremarkable except as noted in HPI and below PMFSH Past Medical History Medical History Anxiety and depression Surgical History Surgical History Tubal ligation status Previous section Family History Family History Grandparent Heart disease Mother Hypertension Father Cancer of lung Social History Social History Tobacco type: e-cigarettes/vaping Alcohol intake: former Alcohol use details: social only Substance use: never Living arrangements: with family Gender identity (if verbalized by the patient): Female Exam Narrative: EXAMINATION OF ORGAN SYSTEMS/BODY AREAS: Constitutional: Vital signs per nursing GENERAL:[No acute distress, non-toxic appearing.] HEAD: Normal with no signs of head trauma. EYES: EOMI, conjunctiva normal ENT: Hearing grossly intact LUNGS: Nonlabored breathing. HEART: [Regular rate and rhythm], normal DP pulse ABD: [Soft], [nontender to palpation] EXT: Normal range of motion; no significant tenderness to the right ankle, there is some tenderness and bruising to the left anterior knee SKIN: Abrasions to right knee, ankle NEURO: [Alert and oriented x 3. No gross focal sensory or strength deficits.] PSYCH: Normal affect Course Vital Signs Vital signs: Vital Signs Temperature 97.8 F 08/18/24 22:10 Pulse Rate 95 08/18/24 22:10 Respiratory Rate 19 08/18/24 22:10 Blood Pressure 165/90 H 08/18/24 22:10 Pulse Oximetry 100 08/18/24 22:10 Oxygen Delivery Room Air 08/18/24 22:10 Temperature 97.8 F 08/18/24 22:10 Pulse Rate 95 08/18/24 22:10 Respiratory Rate 19 08/18/24 22:10 Blood Pressure 165/90 H 08/18/24 22:10 Pulse Oximetry 100 08/18/24 22:10 Oxygen Delivery Room Air 08/18/24 22:10 MDM - Extremity Injury (Lower) MDM Narrative Medical decision making narrative: Patient presenting here with mechanical fall and injury of her right knee yesterday, x-ray on my independent interpretation does not show any obvious fracture, I did speak with radiologist who was kind enough to review the imaging after hours, no acute fracture. Knee is dressed and Dave wrap provided, patient declined crutches, stable for discharge with return precautions. Discharge Plan Discharge Clinical Impression: Knee abrasion Patient Disposition: Home Condition: Stable Instructions: Knee Sprain (ED) Additional Instructions: Please rest your leg, use ice over the next few days, and follow up with orthopedics if you continue to have issue with your knee. Patient Language: Surinamese Prescriptions: No Action aripiprazole 15 mg tablet 15 mg PO DAILY sertraline 100 mg tablet 100 mg PO DAILY polymyxin B sulf-trimethoprim 10,000 unit- 1 mg/mL drops 1 drp RIGHT EYE Q3H 7 Days Qty: 10 0RF Rx Instructions: while awake; do not exceed 6 doses in 24 hours methylprednisolone [Medrol (Kole)] 4 mg tablets,dose pack See Rx Instructions .ROUTE .COMPLEX Qty: 21 0RF Rx Instructions: orally per package directions esomeprazole magnesium 20 mg capsule,delayed release(DR/EC) sucralfate [Carafate] 1 gram tablet 1 g PO QID PRN (Reason: Reflux) 5 Days Qty: 20 0RF pantoprazole [Protonix] 40 mg tablet,delayed release (DR/EC) 40 mg PO HS 28 Days Qty: 28 0RF Follow-up/Referrals: Robert,MD Kamron [Primary Care Provider] - Angel Juárez MD [Physician] - 2 Days
== END 2024-08-18 23:13 | disposition home or self-care (01) ==
LOC: ANHED 22:43
PROVIDERS: Emergency Provider Emergency Medicine; PCP Hospitalist
DX: S80.211A Abrasion, right knee, initial encounter (principal); W19.XXXA Unspecified fall, initial encounter; F41.8 Other specified anxiety disorders
CPT/HCPCS: 73562; 99283